=== PATIENT | female | born 1970 | race Caucasian/White ===

== ENCOUNTER 2019-08-24 09:17 | Outpatient (CLI) | payer BC, SELFPAY ==
--- NOTE | ~2019-08-24 | MM_ITS ---
EXAMINATION: MM screening [facility] BI w shaye HISTORY: Screening mammogram TECHNIQUE: Craniocaudal and mediolateral oblique 3-D tomosynthesis images were obtained and synthetic 2-D images were generated. CAD analysis was submitted and interpreted. COMPARISON: Comparison to multiple prior studies sequentially, with oldest reviewed study dated 10/2014. BREAST PARENCHYMAL COMPOSITION: There are scattered areas of fibroglandular density. FINDINGS: There is no evidence of suspicious mass, calcification, or architectural distortion to sugg est malignancy in either breast. There has been no suspicious interval change. IMPRESSION: 1. No mammographic evidence of malignancy. 2. Recommend routine screening mammography in one year. BI-RADS Category 1: Negative Reviewed, dictated and finalized at location A. CIPAL CYBER ENGINEER
== END 2019-08-24 09:18 | disposition home or self-care (01) ==
LOC: ANHIMG 09:20
PROVIDERS: PCP Family Medicine; Visit Provider Obstetrics & Gynecology
DX: Z12.31 Encounter for screening mammogram for malignant neoplasm of breast (principal)
CPT/HCPCS: 77063; 77067

== ENCOUNTER 2020-09-02 13:41 | Outpatient (CLI) | payer BC, SELFPAY ==
--- NOTE | ~2020-09-02 | MM_ITS ---
EXAMINATION: MM screening mary BI w shaye HISTORY: Screening TECHNIQUE: Craniocaudal and mediolateral oblique 3-D tomosynthesis images were obtained and synthetic 2-D images were generated. CAD analysis was submitted and interpreted. COMPARISON: Comparison to multiple prior studies sequentially, with oldest reviewed study dated 10/2014. BREAST PARENCHYMAL COMPOSITION: There are scattered areas of fibroglandular density. FINDINGS: There is no evidence of suspicious mass, calcification, or architectural distortion to sugg est malignancy in either breast. There has been no suspicious interval change. IMPRESSION: 1. No mammographic evidence of malignancy. 2. Recommend routine screening mammography in one year. BI-RADS Category 1: Negative Reviewed, dictated and finalized at location A. NG FELLER
== END 2020-09-02 13:42 | disposition home or self-care (01) ==
LOC: ANHIMG 13:44
PROVIDERS: PCP Family Medicine; Visit Provider Obstetrics & Gynecology
DX: Z12.31 Encounter for screening mammogram for malignant neoplasm of breast (principal)
CPT/HCPCS: 77063; 77067

== ENCOUNTER 2021-11-03 08:05 | Outpatient (CLI) | payer BC, SELFPAY ==
--- NOTE | ~2021-11-03 | MM_ITS ---
EXAMINATION: MM screening mary BI w shaye HISTORY: Screening mammogram TECHNIQUE: Craniocaudal and mediolateral oblique 3-D tomosynthesis images were obtained and synthetic 2-D images were generated. CAD analysis was submitted and interpreted. COMPARISON: September 02, 2020, August 24, 2019, August 16, 2018 bilateral screening mammogram examina tions BREAST PARENCHYMAL COMPOSITION: There are scattered areas of fibroglandular density. FINDINGS: There is no evidence of suspicious mass, calcification, or architectural distortion to sugg est malignancy in either breast. There has been no suspicious interval change. IMPRESSION: 1. No mammographic evidence of malignancy. 2. Recommend routine screening mammography in one year. BI-RADS Category 1: Negative Reviewed, dictated and finalized at location A.
== END 2021-11-03 08:06 | disposition home or self-care (01) ==
LOC: ANHIMG 08:07
PROVIDERS: PCP Family Medicine; Visit Provider Obstetrics & Gynecology
DX: Z12.31 Encounter for screening mammogram for malignant neoplasm of breast (principal)
CPT/HCPCS: 77063; 77067

== ENCOUNTER 2023-01-02 07:41 | Outpatient (CLI) | payer BC, SELFPAY ==
--- NOTE | ~2023-01-02 | MM_ITS ---
EXAMINATION: MM screening [facility] BI w shaye HISTORY: Screening mammogram TECHNIQUE: Craniocaudal and mediolateral oblique 3-D tomosynthesis images were obtained and synthetic 2-D images were generated. CAD analysis was submitted and interpreted. COMPARISON: 11/03/2021, 09/02/2020, 08/24/2019 BREAST PARENCHYMAL COMPOSITION: There are scattered areas of fibroglandular density. FINDINGS: No suspicious mass, calcification, or architectural distortion are identified in either lindsey ast to suggest malignancy. There has been no suspicious interval change. IMPRESSION: 1. No mammographic evidence of malignancy. 2. Recommend routine screening mammography in one year. BI-RADS Category 1: Negative Reviewed, dictated and finalized at location A.
== END 2023-01-02 07:42 | disposition home or self-care (01) ==
LOC: ANHIMG 07:44
PROVIDERS: PCP Family Medicine; Visit Provider Obstetrics & Gynecology
DX: Z12.31 Encounter for screening mammogram for malignant neoplasm of breast (principal)
CPT/HCPCS: 77063; 77067

== ENCOUNTER → 2023-01-14 09:04 | Outpatient (CLI) | payer BC, SELFPAY ==
--- NOTE | ~2023-01-14 | XR_ITS ---
XR shoulder RT min 2V DATE: 01/14/2023 10:05 INDICATION: Right shoulder pain TECHNIQUE: 4 views COMPARISON: None FINDINGS: Prominent uncovertebral joint spurring is noted on the right at C4-5 and C5-6. There is prominent degenerative spurring at the right acromioclavicular joint. No fracture or dislocation, periosteal reaction or bone destruction or abnormal soft tissue calcifica tion of the right shoulder is detected. IMPRESSION: Prominent right uncovertebral joint spurring at C4-5 and C5-6 Degenerative spurring of the right acromioclavicular joint Reviewed, dictated and finalized at location A.
== END ==
PROVIDERS: PCP Family Medicine; Visit Provider Family Medicine
DX: M25.511 Pain in right shoulder (principal)
CPT/HCPCS: 73030

== ENCOUNTER → 2023-04-22 10:28 | Outpatient (CLI) | payer BC, SELFPAY ==
--- NOTE | ~2023-04-22 | XR_ITS ---
XR cervical spine 4-5V 04/22/2023 10:47 Indication: Neck pain radiating to the right arm Procedure: 5 views cervical spine Comparison: No prior studies for comparison. Findings: There is straightening of cervical lordosis. There is disc narrowing and endplate hypertrop hy at C5-6 and C6-7. There is mild multilevel uncinate and facet hypertrophy. Lung apices are normal. Odontoid process is normal. Lateral masses normally aligned. Impression: 1: Mild cervical spondylosis. Reviewed, dictated and finalized at location A. Impression: 1: Mild cervical spondylosis.
== END ==
PROVIDERS: PCP Family Medicine; Visit Provider Family Medicine
DX: M43.02 Spondylolysis, cervical region (principal)
CPT/HCPCS: 72050

== ENCOUNTER 2023-05-22 09:09 | Outpatient (CLI) | payer BC, SELFPAY ==
--- NOTE | 2023-05-22 11:00 | NEURO_ITS ---
Impression: # Complains of right hand and finger numbness. # No Carpal Tunnel Syndrome or ulnar neuropathy. # Normal needle/EMG exam. # Clinical correlation recommended. Nerve Conduction Studies Anti Sensory Summary Table Stim Site NR Peak (ms) P-T Amp (?V) Site1 Site2 Delta-P (ms) Dist (cm) Cameron (m/s) Left Median Anti Sensory (2-3nd Digit) Wrist 2.4 99.1 Wrist 2-3nd Digit 2.4 14.0 58 Wrist 2.4 120.7 Wrist 2-3nd Digit 2.4 14.0 58 Right Median Anti Sensory (2-3nd Digit) Wrist 2.8 93.1 Wrist 2-3nd Digit 2.8 14.0 50 Wrist 3.0 75.8 Wrist 2-3nd Digit 2.8 14.0 50 Left Radial Anti Sensory (Base 1st Digit) Wrist 1.9 33.3 Wrist Base 1st Digit 1.9 0.0 Right Radial Anti Sensory (Base 1st Digit) Wrist 2.2 31.6 Wrist Base 1st Digit 2.2 0.0 Left Ulnar Anti Sensory (5th Digit) Wrist 2.3 68.6 Wrist 5th Digit 2.3 14.0 61 Right Ulnar Anti Sensory (5th Digit) Wrist 2.1 98.3 Wrist 5th Digit 2.1 14.0 67 Motor Summary Table Stim Site NR Onset (ms) O-P Amp (mV) Site1 Site2 Delta-0 (ms) Dist (cm) Cameron (m/s) Left Median Motor (Abd Poll Brev) Wrist 2.7 1.9 Elbow Wrist 5.0 29.0 58 Elbow 7.7 1.5 Right Median Motor (Abd Poll Brev) Wrist 3.3 4.1 Elbow Wrist 4.9 28.0 57 Elbow 8.2 2.2 Left Ulnar Motor (Abd Dig Minimi) Wrist 2.4 4.6 A Elbow Wrist 5.2 29.0 56 A Elbow 7.6 2.1 Right Ulnar Motor (Abd Dig Minimi) Wrist 2.0 4.6 A Elbow Wrist 5.2 29.0 56 A Elbow 7.2 4.0 F Wave Studies NR F-Lat (ms) L-R F-Lat (ms) Left Median (Mrkrs) (Abd Poll Brev) 28.60 0.00 Right Median (Mrkrs) (Abd Poll Brev) 28.60 0.00 Left Ulnar (Mrkrs) (Abd Dig Min) 27.70 0.81 Right Ulnar (Mrkrs) (Abd Dig Min) 26.89 0.81 EMG Side Muscle Nerve Root Ins Act Fibs Amp Dur Recrt Comment Right 1stDorInt Ulnar C8-T1 Nml Nml Nml Nml Nml Right Ext Indicis Radial (Post Int) C7-8 Nml Nml Nml Nml Nml Right Ext Digitorum Radial (Post Int) C7-8 Nml Nml Nml Nml Nml Right BrachioRad Radial C5-6 Nml Nml Nml Nml Nml Right PronatorTeres Median C6-7 Nml Nml Nml Nml Nml Right Abd Poll Brev Median C8-T1 Nml Nml Nml Nml Nml Left 1stDorInt Ulnar C8-T1 Nml Nml Nml Nml Nml Left Ext Indicis Radial (Post Int) C7-8 Nml Nml Nml Nml Nml Left Ext Digitorum Radial (Post Int) C7-8 Nml Nml Nml Nml Nml Left BrachioRad Radial C5-6 Nml Nml Nml Nml Nml Left PronatorTeres Median C6-7 Nml Nml Nml Nml Nml Left Abd Poll Brev Median C8-T1 Nml Nml Nml Nml Nml Right ABD Dig Min Ulnar C8-T1 Nml Nml Nml Nml Nml Right Biceps Musculocut C5-6 Nml Nml Nml Nml Nml Right Triceps Radial C6-7-8 Nml Nml Nml Nml Nml Left ABD Dig Min Ulnar C8-T1 Nml Nml Nml Nml Nml Left Biceps Musculocut C5-6 Nml Nml Nml Nml Nml Left Triceps Radial C6-7-8 Nml Nml Nml Nml Nml MTDD
== END 2023-05-22 09:10 | disposition home or self-care (01) ==
LOC: ANHNEURO 09:11
PROVIDERS: PCP Family Medicine; Visit Provider Family Medicine
DX: R20.0 Anesthesia of skin (principal)
CPT/HCPCS: 95886; 95911

== ENCOUNTER 2023-06-08 15:32 | Outpatient (CLI) | payer BC, SELFPAY ==
--- NOTE | ~2023-06-08 | MR_ITS ---
EXAMINATION: MR cervical spine wo con DATE: 06/08/2023 16:12 INDICATION: Cervical radiculopathy. TECHNIQUE: Magnetic resonance imaging (MRI) of the cervical spine was performed without intravenous c ontrast. COMPARISON: Cervical spine radiographs 04/22/2023 FINDINGS: There is 3 degrees levocurvature of cervical spine. There is hypolordosis of cervical spine . Vertebral body heights are normal. There is mildly decreased disc height at C4-C5 and moderately de creased disc height at C5-C6. The spinal cord signal intensity is normal. The following disc levels a re specifically discussed: C2-C3: The disc does not extend beyond the endplate margin. There is no uncovertebral joint osteoarth ritis. There is moderate right and severe left facet joint osteoarthritis. There is no neural foramin al stenosis. There is no central canal stenosis. C3-C4: There is a central protrusion. There is moderate right and mild left uncovertebral joint osteo arthritis. There is moderate right and mild left facet joint osteoarthritis. There is moderate right and mild left neural foraminal stenosis. There is mild central canal stenosis. C4-C5: There is a central extrusion. There is severe right and moderate left uncovertebral joint oste oarthritis. There is severe right and moderate left facet joint osteoarthritis. There is moderate rig ht and mild left neural foraminal stenosis. There is mild central canal stenosis with ventral indenta tion of the spinal cord. C5-C6: The disc is bulging. There is severe bilateral uncovertebral joint osteoarthritis. There is mi ld bilateral facet joint osteoarthritis. There is moderate right and mild left neural foraminal steno sis. There is mild central canal stenosis with ventral indentation of the spinal cord. C6-C7: The disc is bulging. There is moderate right and mild left uncovertebral joint osteoarthritis. There is severe bilateral facet joint osteoarthritis. There is moderate left neural foraminal stenos is. There is no central canal stenosis. C7-T1: The disc does not extend beyond the endplate margin. There is no uncovertebral joint osteoarth ritis. There is severe bilateral facet joint osteoarthritis. There is mild bilateral neural foraminal stenosis. There is no central canal stenosis. IMPRESSION: 1. Moderate cervical spondylosis. Reviewed, dictated and finalized at location E. PING CLERK
== END 2023-06-08 15:33 | disposition home or self-care (01) ==
LOC: ANHIMG 15:34
PROVIDERS: PCP Family Medicine; Visit Provider Family Medicine
DX: M47.22 Other spondylosis with radiculopathy, cervical region (principal)
CPT/HCPCS: 72141

== ENCOUNTER 2023-06-21 10:44 | Outpatient (CLI) | payer BC, SELFPAY ==
--- NOTE | ~2023-06-21 | XR_ITS ---
EXAMINATION:XR cervical spine 4-5V DATE: 06/21/2023 11:07 INDICATION: Neck pain TECHNIQUE: AP, lateral in neutral, flexion, and extension, and odontoid views of the cervical spine a re provided. COMPARISON: 04/22/2023 FINDINGS: Alignment is normal. No hypermobility is present with flexion or extension. The odontoid pr ocess is intact. No fracture is identified. There is moderate loss of intervertebral disc space heigh t at C5-C6 and mild loss of disc space height at C4-5 and C6-7. The vertebral body heights are mainta ined. Prevertebral soft tissues are normal. Small degenerative osteophytes project from the anterior endplates of multiple vertebral bodies. There is multilevel moderate facet and uncovertebral joint os teoarthritis. IMPRESSION: 1. Moderate cervical spondylosis without acute findings. Reviewed, dictated and finalized at location B. ER CONTROL TECHNICIAN
== END 2023-06-21 10:45 | disposition home or self-care (01) ==
LOC: ANHIMG 10:51
PROVIDERS: PCP Family Medicine; Visit Provider Neurological Surgery
DX: M43.02 Spondylolysis, cervical region (principal)
CPT/HCPCS: 72050

== ENCOUNTER 2023-10-03 15:21 | Outpatient (CLI) | payer BC, SELFPAY ==
--- NOTE | 2023-10-03 15:35 | ECG_ITS ---
Measurements Intervals [place] Rate: 72 P: 65 MO: 168 QRS: 63 QRSD: 90 T: 69 QT: 390 QTc: 427 Interpretive Statements SINUS RHYTHM NONSPECIFIC T-WAVE ABNORMALITY NO PREVIOUS ECG AVAILABLE FOR COMPARISON Electronically Signed On 10-04-2023 12:18:21 CDT by Carli Marroquin M.D.
[2023-10-03 16:01] LABS: Hemoglobin 13.8 g/dL (12.0-15.0); Mean Corpuscular HGB Conc 32.9 g/dl (32-36); Mean Corpuscular Hemoglobin 29.7 pg (26-34); Mean Corpuscular Volume 90.5 fl (80-100); Mean Platelet Volume 10.5 fl (7.4-10.4); Platelet Count Result 282 k/mm3 (150-375); Red Blood Count 4.64 M/mm3 (4.2-5.4); Red Cell Distribution Width 12.8 % (11.5-14.5); White Blood Count 6.7 K/mm3 (4.5-10.0)
[2023-10-03 16:10] LABS: Appearance Urine Clear (Clear); Bacteria Urine 2+ /hpf; Bilirubin Urine Negative (Negative); Blood Urine Negative (Negative); Color Urine Yellow (Yellow); Glucose Urine UA Negative (Negative); Ketones Urine Negative (Negative); Leukocyte Esterase Ur Trace LEU/UL (Negative); Nitrate Urine Negative (Negative); Non Pathogenic Casts 0-2; Protein Urine Negative (Negative); RBC Urine 0-2 /hpf (0-2); Specific Grav Ur 1.011 (1.001-1.035); Squamous Epithelial Cell Urine Occasional /hpf (Few); Urobilinogen Urine 0.2 mg/dL (<2.0); pH Urine 7.5 (5.0-9.0)
[2023-10-03 16:12] LABS: Anion Gap 4 mmol/L (4-12); Blood Urea Nitrogen 14 mg/dL (7-17); Calcium 9.2 mg/dL (8.4-10.2); Carbon Dioxide 33 mmol/L (22-30); Chloride 101 mmol/L (98-107); Estimated Glomerular Filt Rate > 60; Glucose 131 mg/dL (65-110); Potassium 3.9 mmol/L (3.4-5.0); Sodium 138 mmol/L (137-145)
[2023-10-03 16:13] LABS: INR 0.9; Partial Thromboplastin Time 33.6 Seconds (22.3-36.8); Prothrombin Time 12.8 Seconds (11.1-14.7)
[2023-10-03 16:17] LABS: Add Urine Microscopic? YES
== END 2023-10-03 15:22 | disposition home or self-care (01) ==
LOC: ANHSURGERY 15:24
PROVIDERS: PCP Family Medicine; Visit Provider Neurological Surgery
DX: Z01.818 Encounter for other preprocedural examination (principal); I10 Essential (primary) hypertension; M50.10 Cervical disc disorder with radiculopathy, unspecified cervical region; R93.1 Abnormal findings on diagnostic imaging of heart and coronary circulation
CPT/HCPCS: 36415; 80048; 81001; 85027; 85610; 85730; 86850; 86900; 86901; 87086; 87088; 93005

== ENCOUNTER 2023-10-11 00:53 | Day surgery (SDC) | payer BC, SELFPAY ==
[2023-09-28 11:27] VITALS: BMI 40.7
--- NOTE | 2023-09-28 11:34 | PC.NURSE ---
Report to the Outpatient Waiting Room, entrance under the green pavilion located off [facility], at time 6:00 on date 10/11/23. Planned Procedure Time: 7:30. Time changes happen often and if your time is changed the preop area will call you the afternoon before. - You and your visitor will be asked to self-screen and do not enter if you have any COVID symptoms. - A mask is optional within the hospital at this time. Patients may have clear liquids (water, carbonated beverages, clear teas, apple juice) until 3 hours prior to surgery (4:30) with a maximum of 20 ounces. - No food from midnight until time of surgery Take the following medications with a SIP of water the morning of surgery: LEXAPRO, METOPROLOL DO NOT STOP ANY OF YOUR OTHER PRESCRIPTION MEDICATIONS PRIOR TO SURGERY ?EXCEPT THE FOLLOWING Medications to discontinue per physician: VITAMINS/SUPPLEMENTS Date to take last dose: 10/07/23 Please no make-up, nail tristanian, hairspray, perfume, deodorant, or body powder the day of surgery. No jewelry (including any body piercings) or valuables the day of surgery, leave them at home. Please take a shower or bath the night before, or the morning of, surgery with an antibacterial soap. Wear comfortable, loose fitting clothing. - Jewelry must be removed prior to entering the operating room. Rings and piercings that are not removed may be cut off. - The hospital will not accept responsibility for valuables. - Please leave all valuables, including medications, at home the day of surgery. If you are going home after surgery, a licensed [employer] company driver must drive you home. - NO public transportation without another adult if you receive anesthesia. - We recommend that an adult stay with you for 24 hours following discharge. - We also recommend that you do not drive, make important decision, drink alcoholic beverages, or take any drugs that were not prescribed by your health care provider for at least 24 hours after your discharge time. Follow any additional instructions given to you from your surgeon. If you or anyone in your household have experienced Covid symptoms in the past week, please notify your surgeon or the nurse liaison at the phone number below for possible testing. Telephone instructions given to PT - MAIA and asked if any additional questions and then verbalized understanding. Patient advised to call surgeon office or pre surgery nurse liaison [phone] if any additional questions.
[2023-10-11] VITALS (13 sets, daily range): BP systolic 126–166; BP diastolic 57–83; PULSE 76–103; RESP 10–20; TEMP 36.2–36.8; O2SAT 94–99
--- NOTE | ~2023-10-11 | XR_ITS ---
EXAMINATION: XR fluoroscopy no charge DATE: 10/11/2023 09:58 INDICATION: Anterior cervical discectomy. TECHNIQUE: 4 intraoperative fluoroscopic views of the cervical spine were obtained. I was not present . Fluoroscopy exposure time was 8 seconds. COMPARISON: Cervical spine radiographs 06/21/2023 FINDINGS: There are changes of anterior fusion procedure from C4 to C6 with interbody devices and ant erior plate and screws. IMPRESSION: 1. Anterior fusion procedure from C4 to C6. Reviewed, dictated and finalized at location A.
[2023-10-11] MEDS: LACTATED RINGERS 1,000 ML 30 ML IV CONT ×2 (06:40→10:29)
--- NOTE | 2023-10-11 07:13 | WPDANESEPPF ---
Anes - Initial Pre Proc Eval Procedure: Operation Date: 10/11/23 07:30 Proposed Procedures p Anterior Cervical Discectomy Fusion C4-5 C5-6 - Nadya Velasquez MD Date/Time: 10/11/23 07:13 Surgeon: Nadya Velasquez MD Pre Op Diagnosis: Cerv Radiculopathy Patient Data Age: 53 Gender: F Height: 1.65 m Weight: 111.15 kg Allergies Allergy/AdvReac Type Severity Reaction Status Date / Time erythromycin base Allergy Unknown Hives Verified 10/11/23 06:14 Home Medications Medication Instructions Recorded Confirmed Type cholecalciferol (vitamin D3) 125 125 mcg PO DAILY 07/06/22 10/11/23 History mcg (5,000 unit) capsule multivitamin 1 tablet PO DAILY 10/21/22 10/11/23 History atorvastatin 20 mg tablet 20 mg PO DAILY #30 tabs 07/05/23 10/11/23 Rx escitalopram oxalate 20 mg tablet 20 mg PO DAILY #90 tabs 08/17/23 10/11/23 Rx lisinopril 20 1 tablet PO DAILY #90 tabs 08/17/23 10/11/23 Rx mg-hydrochlorothiazide 12.5 mg tablet metoprolol succinate 25 mg 25 mg PO DAILY #90 tabs 08/17/23 10/11/23 Rx tablet,extended release 24 hr Patient hx anesthesia problems: none Family hx anesthesia problems: none Results Review: All pre-operative results and documents have been reviewed as part of the pre-operative evaluation. [facility] Past Medical History Medical History Arthritis Congenital hip dislocation Generalized anxiety disorder Hyperlipidemia Hypertension Migraine Surgical History Surgical History History of bilateral tubal ligation History of cholecystectomy 01/1997 History of endometrial ablation 2008 History of hip surgery 1985 History of left hip replacement 04/2007 History of tonsillectomy 1996 Family History Family History (Updated 08/31/23 @ 09:09 by Gay Church CMA) Grandparent Carcinoma of colon Family history of malignant neoplasm of cervix Family history of malignant neoplasm of uterus Sibling Family history of malignant neoplasm of cervix Mother Family history of lung cancer Father Hypertension Cerebrovascular accident Other Family history of malignant neoplasm of breast Social History Social History (Updated 08/31/23 @ 09:10 by Gay Church CMA) Smoking packs per day: 1.5 Smoking cigarettes per day: 30.0 Years smoked: 15 Smoking pack-years: 22.50 Smoking status: Former smoker Tobacco type: cigarettes Second hand tobacco smoke exposure: No Smoking end date: 07/03/97 Alcohol intake: current Alcohol use details: VERY RARE Substance use: never Substance use type: does not use Do You Feel Safe in your Home?: Yes Lack of Transportation: No Lack of Food: Never True Current Housing: I Have Housing Concerned About Future Housing: No Difficulty Paying Gas/Electric Bills: No Difficulty Paying for Meds: No Currently Unemployed: No Education: Trade/Vocational Certificate Difficulty w/ Childcare or Family Care: No Living arrangements: with family Occupation/Education: occupation Gender identity (if verbalized by the patient): Female Sexual Orientation (if Verbalized by the Patient): Straight or Heterosexual Spiritual care concerns: No Anes - Eval Final PreProcedure Day of Procedure 10/11/23 07:13 Patient weight: morbidly obese Heart: regular rate and rhythm Lungs: clear to auscultation Airway: Mallampati scale class III Neurological: alert and oriented Last oral intake: >/= 8 hours ASA classification: III Emergent: no Anesthetic plan: proceed Anesthesia type and monitoring: general ETT and standard monitoring Results Review: All pre-operative results and documents have been reviewed as part of the pre-operative evaluation. Informed Consent: The patient's anesthetic plan and its attendant risks and benefits were discussed with the patient/family/POA. Questions wer
--- NOTE | 2023-10-11 07:18 | PM.IMHP ---
H&P: HPI History of Present Illness Date/Time: 10/11/23 07:18 Chief Complaint: Neck, right arm pain Narrative: From 06/21: Ms. Landon is a ? 53-year-old female with history of hypertension and palpitations who presents for evaluation of neck and arm pain.? She reports a 20+ year history symptoms which originally started as a sense of heaviness and weakness of her arms.? She had episodes of this intermittently for a number of years but never sought medical treatment.? She has not had any of these episodes within the last 3 years. Within the last 5 years,? She started to develop pain into the right shoulder which she thought was originating from her shoulder.? She saw a chiropractor and her medical doctor for this, but shoulder x-rays returned normal.? She had an MRI of her neck and was referred here. ? She currently reports intermittent pain in the neck that radiates into the right shoulder, shoulder blade, and down the arm into the thumb and index finger.? She occasionally will get pain into all fingers of her hand.? This pain generally occurs any time that she turns her neck.? She has symptoms in a similar distribution on the left side which are less significant.? As she has paresthesias in her arms and occasionally has difficulty gripping objects with her right hand.? She denies any issues with tripping, falling, balance, or bowel or bladder changes.? She currently takes Tylenol arthritis for pain which is somewhat helpful.? She has not had any other conservative treatments.? She currently works from home and is a nonsmoker. From : She completed physical therapy from which she found some very temporary improvement with traction.? She also epidural steroid injections and had some improvement in her hand symptoms after the transforaminal injection, but this has recently started wearing off.? She continues to have pain into the right shoulder, clavicle, shoulder blade, and down the arm following a C6 distribution.? She denies any left-sided symptoms.? She denies any other new symptoms since her last visit. Review of Systems Review of Systems: All systems reviewed & are unremarkable except as noted in HPI and below PMFSH Past Medical History Medical History (Reviewed 08/31/23 @ 09:07 by Gay Church [facility]) Arthritis Congenital hip dislocation Generalized anxiety disorder Hyperlipidemia Hypertension Migraine Surgical History Surgical History (Reviewed 08/31/23 @ 09:07 by Gay Church [facility]) History of bilateral tubal ligation History of cholecystectomy 01/1997 History of endometrial ablation 2008 History of hip surgery 1986 History of left hip replacement 04/2007 History of tonsillectomy 1996 Family History Family History (Updated 08/31/23 @ 09:09 by Gay Church [facility]) Grandparent Carcinoma of colon Family history of malignant neoplasm of cervix Family history of malignant neoplasm of uterus Sibling Family history of malignant neoplasm of cervix Mother Family history of lung cancer Father Hypertension Cerebrovascular accident Other Family history of malignant neoplasm of breast Social History Social History (Updated 08/31/23 @ 09:10 by Gay Church [facility]) Smoking packs per day: 1.5 Smoking cigarettes per day: 30.0 Years smoked: 15 Smoking pack-years: 22.50 Smoking status: Former smoker Tobacco type: cigarettes Second hand tobacco smoke exposure: No Smoking end date: 07/03/97 Alcohol intake: current Alcohol use details: VERY RARE Substance use: never Substance use type: does not use Do You Feel Safe in your Home?: Yes Lack of Transportation: No Lack of Food: Never True Current Housing: I Have Housing Concerned About Future Housing: No Difficulty Paying Gas/Electric Bills: No Difficulty Paying for Meds: No Currently Unemployed: No Education: Trade/Vocational Certificate Difficulty w/ Childcare or Family Care: No Living arrangements: w
--- NOTE | 2023-10-11 07:20 | WPDHPUPDATE1 ---
History and Physical Update Update Date/Time: 10/11/23 07:20 History and Physical has been reviewed, including an updated exam of the patient. There are NO changes in the patient's condition. Risks, benefits, and alternatives have been discussed and questions answered. Patient agrees to proceed with procedure.
[2023-10-11] MEDS: ceFAZolin 2 GM/D5W 50 ML 2 GM/50 ML BAG IVPB ×3 (07:32→23:42)
[2023-10-11] MEDS: BUPIVACAINE/EPINEPHRINE 0.5% 50 ML VIAL 20 ML INFILTRATE (08:22)
--- NOTE | 2023-10-11 10:16 | PM.OP ---
Procedure Note - Brief Procedure Note - Brief Date of procedure: 10/11/23 Cerv Radiculopathy Post-op diagnosis: Same Procedure performed: ACDF C4-5, C5-6 Surgeon: Nadya Velasquez MD Anesthesia: GETA Findings: Successful ACDF C4-6 without complication Estimated blood loss (mL): 25 Drains: No Packing: No Pathology: None sent Complications: None Condition: Stable Disposition: PACU
--- NOTE | 2023-10-11 10:35 | W.PM.PROC2 ---
Procedure Note - Detailed Date of Procedure 10/11/23 Pre-op Diagnosis Cerv Radiculopathy Post-op Diagnosis Same Procedure Performed 1. Anterior cervical diskectomy C4-5, C5-6 2. Anterior cervical arthrodesis C4-5, C5-6 with i-Factor 3. Anterior cervical interbody placement at C4-5, C5-6 4. Use of microscope for microsurgical dissection 5. Use of C-arm for fluoroscopy Surgeon Nadya Velasquez MD [employer] Conditioning Install[employer] Anesthesia General Findings Ms. Landon is a 53-year-old female who presents with neck and right arm pain radiating into the shoulder and first and second fingers which has been unresponsive to physical therapy and epidural steroid injections. MRI showed severe right neuroforaminal stenosis at C4-5 and C5-6. I recommended surgery in the form of ACDF C4-5 and C5-6. Risks including bleeding, pain, infection, weakness, paralysis, stroke, vocal cord damage, coma, and anesthetic risks were discussed. The patient provided written informed consent to proceed. Description of Procedure The patient was taken to the operating room and was transferred to the operating table in the supine position. General anesthesia was induced. Pressure points were appropriately padded, and compression devices were placed on the patient's calves. A shoulder roll was placed. The appropriate level was confirmed with the C-arm XR imaging. The patient was prepped and draped in usual sterile fashion. Perioperative antibiotics were given. Time out was performed. Local anesthesia was injected into the planned incision site. Incision was made with a 10-blade scalpel on the right side of the neck. The subcutaneous tissue was undermined above the platysma with the Metzenbaum scissors. The platysma was sharply opened horizontally. Bleeding was controlled with the bipolar. The avascular plane to the spine was dissected sharply. The anterior border of the spine was located and exposed with sharp and blunt dissection. A spinal needle was used to localize the C5-6 disc space; this was confirmed on fluoroscopy. The longus coli muscles were elevated bilaterally with a bovie. Once the C4, C5, and C6 vertebral bodies and adjacent intervertebral discs were adequately exposed, self-retaining retractors were placed. [place] pins were placed in the C4 and C5 vertebral bodies and were distracted. An 11-blade scalpel was used to incise the C4-5 disc. A combination of Kerrisons, currettes, and pituitary instruments were used to remove each disc. The microscope was draped and brought into the surgical field. The removal of disc and osteophytes were completed using a high-speed drill, multiple Kerrison punches, and currettes. The posterior longitudinal ligament was opened with a nerve hook and kerrison rongeurs until the neuroforamen bilaterally were adequately decompressed. Interbody trial instruments were used to determine the appropriate size for the prosthetic vertebral interbody cage. Hemostasis was achieved in the disc space with surgiflo and cottonoid patties. A 6mm interbody was filled with i-Factor and placed at C4-5. The caspar pin was removed from C4 and replaced in C6. Wax was placed in the caspar pin site. This process was repeated at the C5-6 disc. The disc was removed as described above, and the posterior longitudinal ligament was opened until the neuroforamen bilaterally were adequately decompressed. Interbody trial instruments were used to determine the appropriate size for the prosthetic vertebral interbody cage. Hemostasis was achieved in the disc space. A 5mm interbody was filled with i-Factor and placed at C5-6. The [place] pins were removed, and bone wax was used for hemostasis. Osteophytes over the vertebral bodies were removed with a [place] and high-speed drill. A 30mm plate was placed over the vertebral bodies and secured with 14mm screws. Accurate hardware placement was confirmed with fluoroscopy. The surgical cavity was copiously irrigated; appropriate hemostasis was verified; and t
--- NOTE | 2023-10-11 10:59 | SUR.PHASEI ---
1059: Simple mask removed.
--- NOTE | 2023-10-11 11:39 | SUR.PHASEI ---
1135: Patient meets PACU discharge criteria, unit bed unavailable at this time. Patient placed in extended recovery status.
--- NOTE | 2023-10-11 12:45 | PC.NURSE ---
This patient, Cait Landon, was admitted to [facility] Surg Room 315-01. Patient/family oriented to hospital policies and general routines including ID bracelet, bed and alarms, visiting hours, pain management, procedures, bathroom and other care routines, personal items, smoking policy, room service/diet, and visiting hours. Information on how to activate the Rapid Response Team has been discussed. Patient/Family are encouraged to report perceived risks to care and to ask questions if they do not understand what they are told or what they should do.
[2023-10-11] MEDS: oxyCODONE HCL (*CRX) 5 MG TAB IR PO (13:46)
[2023-10-11] MEDS: CYCLOBENZAPRINE HCL 10 MG TABLET PO ×2 (13:47→18:59)
[2023-10-11] MEDS: SODIUM CHLORIDE 0.9% IV 1,000 ML 100 ML IV CONT (13:47)
[2023-10-11] MEDS: ACETAMINOPHEN 500 MG TABLET 1000 MG PO (18:59)
[2023-10-11] MEDS: DOCUSATE SODIUM 100 MG CAPSULE PO (20:10)
[2023-10-11] MEDS: oxyCODONE HCL (*CRX) 5 MG TAB IR 10 MG PO (20:10)
[2023-10-12 01:30] VITALS: BP 121/60; PULSE 83; RESP 16; TEMP 36.6; O2SAT 95
[2023-10-12 05:30] VITALS: BP 149/65; PULSE 79; RESP 16; TEMP 36.5; O2SAT 97
[2023-10-12] MEDS: ACETAMINOPHEN 500 MG TABLET 1000 MG PO ×2 (06:13→12:20)
[2023-10-12 07:55] VITALS: BP 135/65; PULSE 72; RESP 18; TEMP 37.2; O2SAT 96
--- NOTE | 2023-10-12 07:57 | WPDANESPN ---
Anes - Prog Note Post-Op Date/Time: 10/12/23 07:57 Cardiovascular status: normal Respiratory status: normal Airway patency: baseline Mental status: baseline Post-Op hydration status: normal Vital Signs: Last Vital Signs Temp 36.5 C 10/12/23 05:30 Pulse 79 10/12/23 05:30 Resp 16 10/12/23 05:30 BP 149/65 H 10/12/23 05:30 Pulse Ox 97 10/12/23 05:30 O2 Del Method Room Air 10/11/23 20:00 O2 Flow Rate 2 10/11/23 12:30 Pain Score (VAS): 08/12 I/O: Intake & Output 10/11/23 10/11/23 10/12/23 15:59 23:59 07:59 Intake Total 550 1483.3 675 Balance 550 1483.3 675 Post-procedural complaints: none Patient Feedback: Patient satisfied with anesthetic care.
[2023-10-12 08:39] VITALS: PULSE 69
[2023-10-12] MEDS: METOPROLOL SUCCINATE EXT REL 25 MG TABCR PO (08:39)
[2023-10-12] MEDS: ATORVASTATIN 20 MG TABLET PO (08:40)
[2023-10-12] MEDS: hydroCHLOROthiazide 12.5 MG CAPSULE PO (08:40)
[2023-10-12] MEDS: lisinopriL 20 MG TABLET PO (08:40)
[2023-10-12] MEDS: ceFAZolin 2 GM/D5W 50 ML 2 GM/50 ML BAG IVPB ×2 (08:40→15:28)
[2023-10-12] MEDS: ESCITALOPRAM OXALATE 10 MG TABLET 20 MG PO (08:40)
[2023-10-12 13:30] VITALS: BP 135/67; PULSE 81; RESP 18; TEMP 36.6; O2SAT 100
[2023-10-12] MEDS: diphenhydrAMINE HCl CAP 25 MG CAPSULE PO (13:41)
--- NOTE | 2023-10-12 17:31 | WPDNEUROSGPN ---
Progress Note: A&P Assessment and Plan (1) Status post cervical arthrodesis: Code(s): Z98.1 - Arthrodesis status Status: Acute Plan -Discharge home this evening -Flushing may be delayed reaction to ioban vs IV steroids yesterday? -Wound care and restrictions discussed at bedside Subjective Date/time seen: 10/12/23 17:31 Interval history: Doing well with tolerable neck pain and minimal arm pain. Swallowing without difficulty. Ambulating in halls. She developed sudden flushing of the face and chest earlier this morning with mild itching under the chin. Did not receive antibiotics or other medication within a few hours of the onset of these symptoms. Feeling better this evening. Review of Systems Review of Systems: All systems reviewed & are unremarkable except as noted in HPI and below Exam Narrative: AOx4 Incision c/d/i Full strength in upper extremities Sensation intact Objective Data Vital Signs Vital Signs: Vital Signs - 24 hr 10/11/23 21:30 10/11/23 20:00 10/12/23 01:30 Temperature 98.3 F 98 F Pulse Rate 94 83 Respiratory Rate 16 16 Blood Pressure 134/57 L 121/60 Pulse Oximetry 94 95 Oxygen Delivery Room Air 10/12/23 05:30 10/12/23 08:39 10/12/23 08:00 Temperature 97.7 F Pulse Rate 79 69 Respiratory Rate 16 Blood Pressure 149/65 H Pulse Oximetry 97 Oxygen Delivery Room Air 10/12/23 07:55 10/12/23 13:30 Temperature 98.9 F 97.9 F Pulse Rate 72 81 Respiratory Rate 18 18 Blood Pressure 135/65 135/67 Pulse Oximetry 96 100 Oxygen Delivery Intake/Output Intake/Output: Intake & Output 10/09/23 10/10/23 10/11/23 10/12/23 23:59 23:59 23:59 23:59 Intake Total 3.3 2265 Balance 2033.3 2265 Meds/Results Medications: Active Medications Generic Name Dose Route Start Last Admin Trade Name Freq PRN Reason Stop Dose Admin Acetaminophen 1,000 mg 10/11/23 10:30 10/12/23 12:20 Acetaminophen 500 Mg Tablet PO 1,000 mg Q6H PRN Administration Mild Pain (1-3) Al Hydrox/Mg Hydrox/Simethicone 20 ml 10/11/23 10:30 Mag Hydrox/Al Hydrox/Simeth 30 Ml Udc PO Q4H PRN Indigestion/Heartburn Atorvastatin Calcium 20 mg 10/12/23 09:00 10/12/23 08:40 Atorvastatin 20 Mg Tablet PO 20 mg DAILY JOSIAS Administration Bisacodyl 10 mg 10/11/23 10:30 Bisacodyl 10 Mg Suppository RECTAL DAILY PRN Constipation Cyclobenzaprine HCl 10 mg 10/11/23 10:30 10/11/23 18:59 Cyclobenzaprine Hcl 10 Mg Tablet PO 10 mg TID PRN Administration Muscle Spasms Docusate Sodium 100 mg 10/11/23 21:00 10/12/23 08:47 Docusate Sodium 100 Mg Capsule PO Not Given Q12HR JOSIAS Escitalopram Oxalate 20 mg 10/12/23 09:00 10/12/23 08:40 Escitalopram Oxalate 10 Mg Tablet PO 20 mg DAILY JOSIAS Administration Hydrochlorothiazide 12.5 mg 10/12/23 09:00 10/12/23 08:40 Hydrochlorothiazide 12.5 Mg Capsule PO 12.5 mg QAM JOSIAS Administration Cefazolin Sodium 2 gm in 50 mls @ 100 mls/hr 10/11/23 16:00 10/12/23 15:28 Ancef 2 Gm/D5w 50 Ml IVPB 100 mls/hr Q8H JOSIAS Administration Sodium Chloride 1,000 mls @ 100 mls/hr 10/11/23 10:30 10/11/23 23:43 Normal Saline Iv IV CONT Not Given .Q10H JOSIAS Lisinopril 20 mg 10/12/23 09:00 10/12/23 08:40 Lisinopril 20 Mg Tablet PO 20 mg QAM JOSIAS Administration Metoprolol Succinate 25 mg 10/12/23 09:00 10/12/23 08:39 Metoprolol Succinate Ext Rel 25 Mg Tabcr PO 25 mg DAILY JOSIAS Administration Ondansetron HCl 4 mg 10/11/23 10:30 Ondansetron Inj 4 Mg/2 Ml Vial IV PUSH Q8H PRN Nausea And Vomiting Oxycodone HCl 10 mg 10/11/23 10:30 10/11/23 20:10 Oxycodone Hcl (*Crx) 5 Mg Tab Ir PO 10 mg Q6H PRN Administration Pain Rated 7-10 Oxycodone HCl 5 mg 10/11/23 10:30 10/11/23 13:46 Oxycodone Hcl (*Crx) 5 Mg Tab Ir PO 5 mg Q6H PRN Administration Pain Rated 4-6 Senna/Docusate Sodium 1 tab 10/11/23
== END 2023-10-12 18:00 | disposition home or self-care (01) ==
LOC: ANHSURGERY 05:54 → ANH3MEDSUR 12:22
PROVIDERS: PCP Family Medicine; Visit Provider Neurological Surgery
PROC: (CPT 63030; principal; 2023-10-11 07:30)
DX: M50.11 Cervical disc disorder with radiculopathy, high cervical region (principal); I10 Essential (primary) hypertension; E78.5 Hyperlipidemia, unspecified; F41.9 Anxiety disorder, unspecified; E66.01 Morbid (severe) obesity due to excess calories; Z68.41 Body mass index [BMI] 40.0-44.9, adult; Z98.890 Other specified postprocedural states; Z87.891 Personal history of nicotine dependence; Z90.49 Acquired absence of other specified parts of digestive tract; Z80.0 Family history of malignant neoplasm of digestive organs; Z80.49 Family history of malignant neoplasm of other genital organs; Z80.1 Family history of malignant neoplasm of trachea, bronchus and lung; Z80.3 Family history of malignant neoplasm of breast; Z82.49 Family history of ischemic heart disease and other diseases of the circulatory system
CPT/HCPCS: 22551; 22552; 22853 ×2; 99199; A9270; C1713; J0330; J0690; J1100; J1170; J1200; J2250; J2310; J2405; J2704; J3010; J7030; J7120

== ENCOUNTER 2024-01-11 16:09 | Outpatient (CLI) | payer BC, SELFPAY ==
--- NOTE | ~2024-01-11 | MM_ITS ---
EXAMINATION: MM screening mary BI w shaye HISTORY: Screening TECHNIQUE: Craniocaudal and mediolateral oblique 3-D tomosynthesis images were obtained and synthetic 2-D images were generated. CAD analysis was submitted and interpreted. COMPARISON: Comparison to multiple prior studies sequentially, with oldest reviewed study dated 01/2018. BREAST PARENCHYMAL COMPOSITION: Not dense: There are scattered areas of fibroglandular density. FINDINGS: There is no evidence of suspicious mass, calcification, or architectural distortion to sugg est malignancy in either breast. There has been no suspicious interval change. IMPRESSION: 1. No mammographic evidence of malignancy. 2. Recommend routine screening mammography in one year. BI-RADS Category 1: Negative Reviewed, dictated and finalized at location B.
== END 2024-01-11 16:10 | disposition home or self-care (01) ==
LOC: ANHIMG 16:10
PROVIDERS: PCP Family Medicine; Visit Provider Obstetrics & Gynecology
DX: Z12.31 Encounter for screening mammogram for malignant neoplasm of breast (principal)
CPT/HCPCS: 77063; 77067

== ENCOUNTER 2024-01-24 15:35 | Outpatient (CLI) | payer BC, SELFPAY ==
--- NOTE | ~2024-01-24 | XR_ITS ---
[id number]_CR Ordering provider: Nadya Velasquez MD History: . Z98.1 - Arthrodesis status, surg in October, follow up . Comparison: June 21, 2023 FINDINGS: VERTEBRAL BODIES: Normal height and alignment. No visible fracture or subluxation. The dens is intact . Postoperative changes seen anteriorly at the level of C4, C5 and C6. DISK SPACES: Well maintained. Disc spacers seen at the level of C4-C5 and C5-C6 Facet joint disease at the level of C6-C7 and C7-T1 PARASPINOUS SOFT TISSUES: No prevertebral soft tissue swelling. IMPRESSION: No acute osseous abnormality cervical spine. Postoperative changes. Reviewed, dictated and finalized at location A.
== END 2024-01-24 15:36 | disposition home or self-care (01) ==
LOC: ANHIMG 15:36
PROVIDERS: PCP Family Medicine; Visit Provider Neurological Surgery
DX: Z98.1 Arthrodesis status (principal); Z98.890 Other specified postprocedural states
CPT/HCPCS: 72040

== ENCOUNTER 2024-04-29 00:55 | Day surgery (SDC) | payer BC, SELFPAY ==
[2024-04-16 14:09] VITALS: BMI 40.7
--- NOTE | 2024-04-28 14:57 | WPDANESEPP ---
Anes - Eval Pre Procedure Procedure: Operation Date: 04/29/24 08:30 Proposed Procedures p Screening Colonoscopy - Tom Ng MD Date/Time: 04/28/24 14:57 Pre Op Diagnosis: Hx colon Polyps Patient Data Age: 54 Gender: F Height: 1.65 m Weight: 111 kg Allergies Allergy/AdvReac Type Severity Reaction Status Date / Time erythromycin base Allergy Unknown Hives Verified 04/25/24 09:41 Home Medications Medication Instructions Recorded Confirmed Type cholecalciferol (vitamin D3) 125 125 mcg PO DAILY 07/06/22 04/25/24 History mcg (5,000 unit) capsule multivitamin 1 tablet PO DAILY 10/21/22 04/25/24 History atorvastatin 20 mg tablet 20 mg PO DAILY #30 tabs 03/14/24 04/25/24 Rx escitalopram oxalate 20 mg tablet 20 mg PO DAILY #90 tabs 04/21/24 04/25/24 Rx (Lexapro) lisinopril 20 1 tablet PO DAILY #90 tabs 04/21/24 04/25/24 Rx mg-hydrochlorothiazide 12.5 mg tablet metoprolol succinate 25 mg 25 mg PO DAILY #90 tabs 04/21/24 04/25/24 Rx tablet,extended release 24 hr Patient hx anesthesia problems: none Family hx anesthesia problems: none Results Review: All pre-operative results and documents have been reviewed as part of the pre-operative evaluation. [facility] Past Medical History Medical History Abnormal glucose Arthritis Congenital hip dislocation Generalized anxiety disorder Herniation of cervical intervertebral disc with radiculopathy Hyperlipidemia Hypertension Migraine Surgical History Surgical History History of bilateral tubal ligation History of cholecystectomy 01/1997 History of endometrial ablation 2008 History of hip surgery 1985 History of left hip replacement 04/2007 History of tonsillectomy 1996 Status post cervical arthrodesis October 11, 2023 Family History Family History Grandparent Carcinoma of colon Family history of malignant neoplasm of cervix Family history of malignant neoplasm of uterus Sibling Family history of malignant neoplasm of cervix Mother Family history of lung cancer Father Hypertension Cerebrovascular accident Other Family history of malignant neoplasm of breast Social History Social History Smoking packs per day: 1.5 Smoking cigarettes per day: 30.0 Years smoked: 15 Smoking pack-years: 22.50 Smoking status: Former smoker Tobacco type: cigarettes Second hand tobacco smoke exposure: No Smoking end date: 07/03/98 Alcohol intake: current Alcohol use details: 1 x month Substance use: never Substance use type: does not use Do You Feel Safe in your Home?: Yes Lack of Transportation: No Lack of Food: Never True Current Housing: I Have Housing Concerned About Future Housing: No Difficulty Paying Gas/Electric Bills: No Difficulty Paying for Meds: No Currently Unemployed: No Education: Associate Degree Difficulty w/ Childcare or Family Care: No Living arrangements: with family Occupation/Education: occupation Gender identity (if verbalized by the patient): Female Sexual Orientation (if Verbalized by the Patient): Straight or Heterosexual Spiritual care concerns: No Exam Day of Procedure 04/28/24 14:57
[2024-04-29 07:26] VITALS: BP 146/86; PULSE 92; RESP 18; TEMP 35.9; O2SAT 98
[2024-04-29] MEDS: LACTATED RINGERS 1,000 ML 150 ML IV CONT (07:36)
--- NOTE | 2024-04-29 08:02 | P.PNAN_ITS ---
Anes - Initial Pre Proc Eval Procedure: Operation Date: 04/29/24 08:30 Proposed Procedures p Screening Colonoscopy - Tom Ng MD Date/Time: 04/29/24 08:02 Surgeon: Tom Ng MD Pre Op Diagnosis: Hx colon Polyps Patient Data Age: 54 Gender: F Height: 1.65 m Weight: 110.1 kg Last Vital Signs Temp 35.9 C L 04/29/24 07:26 Pulse 92 04/29/24 07:26 Resp 18 04/29/24 07:26 BP 146/86 H 04/29/24 07:26 Pulse Ox 98 04/29/24 07:26 O2 Del Method Room Air 04/29/24 07:26 Allergies Allergy/AdvReac Type Severity Reaction Status Date / Time erythromycin base Allergy Unknown Hives Verified 04/29/24 07:23 Home Medications Medication Instructions Recorded Confirmed Type cholecalciferol (vitamin D3) 125 125 mcg PO DAILY 07/06/22 04/29/24 History mcg (5,000 unit) capsule multivitamin 1 tablet PO DAILY 10/21/22 04/29/24 History atorvastatin 20 mg tablet 20 mg PO DAILY #30 tabs 03/14/24 04/29/24 Rx escitalopram oxalate 20 mg tablet 20 mg PO DAILY #90 tabs 04/21/24 04/29/24 Rx (Lexapro) lisinopril 20 1 tablet PO DAILY #90 tabs 04/21/24 04/29/24 Rx mg-hydrochlorothiazide 12.5 mg tablet metoprolol succinate 25 mg 25 mg PO DAILY #90 tabs 04/21/24 04/29/24 Rx tablet,extended release 24 hr Patient hx anesthesia problems: none Family hx anesthesia problems: none Results Review: All pre-operative results and documents have been reviewed as part of the pre- operative evaluation. [facility] Past Medical History Medical History Abnormal glucose Arthritis Congenital hip dislocation Generalized anxiety disorder Herniation of cervical intervertebral disc with radiculopathy Hyperlipidemia Hypertension Migraine Surgical History Surgical History History of bilateral tubal ligation History of cholecystectomy 01/1997 History of endometrial ablation 2008 History of hip surgery 1985 History of left hip replacement 04/2007 History of tonsillectomy 1996 Status post cervical arthrodesis October 11, 2023 Family History Family History Grandparent Carcinoma of colon Family history of malignant neoplasm of cervix Family history of malignant neoplasm of uterus Sibling Family history of malignant neoplasm of cervix Mother Family history of lung cancer Father Hypertension Cerebrovascular accident Other Family history of malignant neoplasm of breast Social History Social History Smoking packs per day: 1.5 Smoking cigarettes per day: 30.0 Years smoked: 15 Smoking pack-years: 22.50 Smoking status: Former smoker Tobacco type: cigarettes Second hand tobacco smoke exposure: No Smoking end date: 07/03/98 Alcohol intake: current Alcohol use details: 1 x month Substance use: never Substance use type: does not use Do You Feel Safe in your Home?: Yes Lack of Transportation: No Lack of Food: Never True Current Housing: I Have Housing Concerned About Future Housing: No Difficulty Paying Gas/Electric Bills: No Difficulty Paying for Meds: No Currently Unemployed: No Education: Associate Degree Difficulty w/ Childcare or Family Care: No Living arrangements: with family Occupation/Education: occupation Gender identity (if verbalized by the patient): Female Sexual Orientation (if Verbalized by the Patient): Straight or Heterosexual Spiritual care concerns: No Comments use propofol amidate mixture for sedation Anes - Eval Final PreProcedure Day of Procedure 04/29/24 08:02 Patient weight: morbidly obese Heart: regular rate and rhythm and murmur Lungs: clear to auscultation Airway: Mallampati scale class III Neurological: alert and oriented Last oral intake: >/= 8 hours ASA classification: III Emergent: no Anesthetic plan: proceed Anesthesia type and monitoring: general GIVS and standard monitoring Results Review: All pre-operative results and documents have been reviewed as part of the pre- operative evaluation. Informed Consent: The patient's anesthetic plan and its attendant risks and benefits were discussed with the patient/family/POA. Questions were solicited and answers provided to the satisfaction of the patient/family/POA.
--- NOTE | 2024-04-29 08:48 | PM.IMHP ---
H&P: HPI History of Present Illness Date/Time: 04/29/24 08:48 Chief Complaint: History of polyps Narrative: The patient has a history of colonic polyps, the last colonoscopy was 5 years ago. Review of Systems Review of Systems: All systems reviewed & are unremarkable except as noted in HPI and below PMFSH Past Medical History Medical History Abnormal glucose Arthritis Congenital hip dislocation Generalized anxiety disorder Herniation of cervical intervertebral disc with radiculopathy Hyperlipidemia Hypertension Migraine Surgical History Surgical History History of bilateral tubal ligation History of cholecystectomy 01/1997 History of endometrial ablation 2008 History of hip surgery 1985 History of left hip replacement 04/2007 History of tonsillectomy 1996 Status post cervical arthrodesis October 11, 2023 Family History Family History Grandparent Carcinoma of colon Family history of malignant neoplasm of cervix Family history of malignant neoplasm of uterus Sibling Family history of malignant neoplasm of cervix Mother Family history of lung cancer Father Hypertension Cerebrovascular accident Other Family history of malignant neoplasm of breast Social History Social History Smoking packs per day: 1.5 Smoking cigarettes per day: 30.0 Years smoked: 15 Smoking pack-years: 22.50 Smoking status: Former smoker Tobacco type: cigarettes Second hand tobacco smoke exposure: No Smoking end date: 07/03/98 Alcohol intake: current Alcohol use details: 1 x month Substance use: never Substance use type: does not use Do You Feel Safe in your Home?: Yes Lack of Transportation: No Lack of Food: Never True Current Housing: I Have Housing Concerned About Future Housing: No Difficulty Paying Gas/Electric Bills: No Difficulty Paying for Meds: No Currently Unemployed: No Education: Associate Degree Difficulty w/ Childcare or Family Care: No Living arrangements: with family Occupation/Education: occupation Gender identity (if verbalized by the patient): Female Sexual Orientation (if Verbalized by the Patient): Straight or Heterosexual Spiritual care concerns: No Meds Home Medications and Allergies Home Medications Medication Instructions Recorded Confirmed Type cholecalciferol (vitamin D3) 125 125 mcg PO DAILY 07/06/22 04/29/24 History mcg (5,000 unit) capsule multivitamin 1 tablet PO DAILY 10/21/22 04/29/24 History atorvastatin 20 mg tablet 20 mg PO DAILY #30 tabs 03/14/24 04/29/24 Rx escitalopram oxalate 20 mg tablet 20 mg PO DAILY #90 tabs 04/21/24 04/29/24 Rx (Lexapro) lisinopril 20 1 tablet PO DAILY #90 tabs 04/21/24 04/29/24 Rx mg-hydrochlorothiazide 12.5 mg tablet metoprolol succinate 25 mg 25 mg PO DAILY #90 tabs 04/21/24 04/29/24 Rx tablet,extended release 24 hr Allergies Allergy/AdvReac Type Severity Reaction Status Date / Time erythromycin base Allergy Unknown Hives Verified 04/29/24 07:23 Vital Signs Vital Signs - 24 hr 04/29/24 07:26 Temperature 96.7 F L Pulse Rate 92 Respiratory Rate 18 Blood Pressure 146/86 H Pulse Oximetry 98 Oxygen Delivery Room Air Assessment and Plan Assessment and plan (1) History of colonic polyps: Code(s): Z86.0100 - Personal history of colon polyps, unspecified Status: Acute Assessment and Plan: The patient is deemed a good candidate for the procedure. Consent signed. Will proceed.
[2024-04-29 09:08] VITALS: BP 110/51; PULSE 72; RESP 13; O2SAT 97
[2024-04-29 09:18] VITALS: BP 113/54; PULSE 64; RESP 15; O2SAT 97
[2024-04-29 09:28] VITALS: BP 118/65; PULSE 66; RESP 14; O2SAT 99
== END 2024-04-29 09:36 | disposition home or self-care (01) ==
PROVIDERS: PCP Family Medicine; Referring Provider Internal Medicine Gastroenterology; Visit Provider Internal Medicine Gastroenterology
PROC: 0DJD8ZZ Inspection of Lower Intestinal Tract, Via Natural or Artificial Opening Endoscopic (ICD-10-PCS; CPT 45378; principal; 2024-04-29 08:30)
DX: Z12.11 Encounter for screening for malignant neoplasm of colon (principal); E78.5 Hyperlipidemia, unspecified; I10 Essential (primary) hypertension; F41.9 Anxiety disorder, unspecified; M50.10 Cervical disc disorder with radiculopathy, unspecified cervical region; E66.01 Morbid (severe) obesity due to excess calories; Z68.41 Body mass index [BMI] 40.0-44.9, adult; Z98.890 Other specified postprocedural states; Z90.49 Acquired absence of other specified parts of digestive tract; Z98.51 Tubal ligation status; Z98.1 Arthrodesis status; Z87.891 Personal history of nicotine dependence; Z86.0100 Personal history of colon polyps, unspecified; Z80.3 Family history of malignant neoplasm of breast; Z80.0 Family history of malignant neoplasm of digestive organs; Z80.49 Family history of malignant neoplasm of other genital organs; Z80.1 Family history of malignant neoplasm of trachea, bronchus and lung; Z82.49 Family history of ischemic heart disease and other diseases of the circulatory system
CPT/HCPCS: 45378; J2003; J2704; J7120

== ENCOUNTER 2024-07-24 09:34 | Outpatient (CLI) | payer BC, SELFPAY ==
--- NOTE | ~2024-07-24 | XR_ITS ---
Cervical Spine: AP, lateral, open-mouth views Clinical History: Arthrodesis COMPARISON: 01/24/2024 Findings: The normal lordotic curve is maintained. No acute fracture or dislocation. Stable anterior and interbody fusion from C4 through C6. Stable degenerative disc changes C6-C7. Pre-vertebral soft t issues are unremarkable. Impression: Stable fusion from C4 through C6. Stable mild degenerative change otherwise, as above. Reviewed, dictated and finalized at location . YE GUNNER Impression: Stable fusion from C4 through C6. Stable mild degenerative change otherwise, as above.
--- OUTSIDE RECORDS SUMMARY | 2024-07-25 22:34 | XMS_ITS | Referral Summary ---
Author Organization [facility] [address] [address] [address] [place] [address] Care Team Providers Care Gelatin Powder Mixer Name Role Phone Spencer Manuel MD Primary Care Provider Allergies No known active allergies Medications metoprolol XL (TOPROL-XL) 25 mg extended release tablet Take 1 tablet (25 mg total) by mouth daily 07/28/2020 Active atorvastatin (LIPITOR) 20 mg tablet Take 1 tablet (20 mg total) by mouth daily 07/28/2020 Active lisinopril-hydr oCHLOROthiazide (ZESTORETIC) 20-12.5 mg per tablet Take 1 tablet by mouth daily 07/08/2020 Active escitalopram (LEXAPRO) 20 mg tablet Take 1 tablet (20 mg total) by mouth daily 08/19/2020 Active evening primrose oil 500 mg capsule Activ e cholecalciferol (VITAMIN D-3) 5,000 unit capsule Take 1 capsule (5,000 Units total) by mouth daily Active Active Problems Problem Noted Date Diagnosed Date Mild aortic stenosis by prior echocardiogram 09/2023 Dizziness 11/21/2022 Palpitations 08/20/2020 Hyperlipidemia Hypertension BMI 40.0-44.9, adult Social History Tobacco Use Types Packs/Day Years Used Date Smoking Tobacco: Former Cigarettes Q uit: 1997 Smokeless Tobacco: Never Tobacco Cessation:Counseling Given: Not Answered Alcohol Use Standard Drinks/Week Comments Not Currently 0 (1 standard drink = 0.6 oz pur e alcohol) Rarely have a drink Personal Safety Answer Date Recorded Getting School Help Needed Not on file 09/14 Comments Unknown Sex and Gender Information Value Date Recorded Sex Assigned at Not on file Legal Sex 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 Gender Identity Female 08/19/2020 7:33 PM MILLING MACHINIST Sexual Orientation Straight 08/19/2020 7: 33 PM MILLING MACHINIST Last Filed Vital Signs Vital Sign Reading Time Taken Comments Blood Pressure 112/74 12/04/2023 8:22 AM CDT Pulse 88 12/04/2023 8:22 AM CDT Temperature 36.2 ??C (97.1 ??F) 08/25/2020 1 0:12 AM MILLING MACHINIST Respiratory Rate - - Oxygen Saturation 97% 12/04/2023 8:22 AM CDT Inhaled Oxygen Concentration - - Weight 113.3 kg (249 lb 12.8 oz) 12/04/2023 8:22 AM CDT Height 162.6 cm (5' 4 ) 12/04/2023 8:22 AM CDT Body Mass Index 42.88 12/04/2023 8:22 AM CDT Plan of Treatment Not on file Insurance [employer] Care Teams Gelatin Powder Mixer Relationship Specialty Start Date End Date Spencer Manuel MD [address] [place] [address] PCP - General 06/07/11
--- OUTSIDE RECORDS SUMMARY | 2024-07-25 22:34 | XMS_ITS | Encounter Summary ---
Author Organization [facility] Address 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 Gender Identity Not on file Sexual Orientation Not on file documented as of this encounter Plan of Treatment Not on file documented as of this encounter Procedures Procedure Name Priority Date/Time Associated Diagnosis Comments HEMOGLOBIN AND HEMATOCRIT Routine 04/25/2007 5:00 AM CDT PROTIME-INR Routine 04/25/2007 5:00 AM CDT HEMOGLOBIN AND HEMATOCRIT Routine 04/24/2007 5:00 AM CDT PROTIME-INR Routine 04/24/2007 5:00 AM CDT HEMOGLOBIN AND HEMATOCRIT Routine 04/23/2007 5:21 PM CDT HEMOGLOBIN AND HEMATOCRIT Routine 04/23/2007 12:20 PM CDT POC , URINE Routine 04/23/2007 5:50 AM CDT HEMOGLOBIN AND HEMATOCRIT Routine 04/16/2007 4:23 PM CDT documented in this encounter Results * PROTIME-INR (04/25/2007 5:00 AM CDT) PROTIME 14.4 12.7 - 15.1 Seconds INTERFACE SYSTEM INR 1.1 0.9 - 1.1 INTERFACE SYSTEM Comment: INR Therapeutic Range: Adult: 2.0 - 3.0 for pulmonary embolism or prophylaxis against venous thrombosis or systemic embolization. 2.0 - 3.0 for patients with tissue heart valves. 2.5 - 3.5 for patients with mechanical heart valves or post DE. Pediatric ??(12 years and under): 1.5 - 3.0 Although the target range in children is not well established , INR values of 1.5 - 3.0 are recommended for most patients. Higher values have been used in children with prosthetic cardiac valves and hereditary clotting disorders. (<3 days) therapeutic ranges have not been established. 04/25/2007 5:00 AM CDT Deshawn Wood MD HEMATOLOGY ORDERABLES Edited Performing Organization Address City/[facility] Phone Number INTERFACE SYSTEM Refer to clinic/hospital department * (ABNORMAL) HEMOGLOBIN AND HEMATOCRIT (04/25/2007 5:00 AM CDT) HEMOGLOBIN 8.6(L) 13.6 - 16.5 g/dL INTERFACE SYSTEM HEMATOCRIT 26.3(L) 40.0 - 48.0 % INTERFACE SYSTEM 04/25/2007 5:00 AM CDT Deshawn Wood MD HEMATOLOGY ORDERABLES Edited Performing Organization Address City/[facility] [place] Phone Number INTERFACE SYSTEM Refer to clinic/hospital department * (ABNORMAL) PROTIME-INR (04/24/2007 5:00 AM CDT) PROTIME 15.5(H) 12.7 - 15.1 Seconds INTERFACE SYSTEM INR 1.2(H) 0.9 - 1.1 INTERFACE SYSTEM Comment: INR Therapeutic Range: Adult: 2.0 - 3.0 for pulmonary embolism or prophylaxis against venous thrombosis or systemic embolization. 2.0 - 3.0 for patients with tissue heart valves. 2.5 - 3.5 for patients with mechanical heart valves or post DE. Pediatric ??(12 years and under): 1.5 - 3.0 Although the target range in children is not well established , INR values of 1.5 - 3.0 are recommended for most patients. Higher values have been used in children with prosthetic cardiac valves and hereditary clotting disorders. (<3 days) therapeutic ranges have not been established. 04/24/2007 5:00 AM CDT us Deshawn Wood MD HEMATOLOGY ORDERABLES Edited Performing Organization Address [facility] Phone Number INTERFACE SYSTEM Refer to clinic/hospital department * (ABNORMAL) HEMOGLOBIN AND HEMATOCRIT (04/24/2007 5:00 AM CDT) HEMOGLOBIN 8.8(L) 13.6 - 16.5 g/dL INTERFACE SYSTEM HEMATOCRIT 26.6(L) 40.0 - 48.0 % INTERFACE SYSTEM 04/24/2007 5:00 AM CDT us Deshawn Wood MD HEMATOLOGY ORDERABLES Edited Performing Organization Address [facility] Phone Number INTERFACE SYSTEM Refer to clinic/hospital department * (ABNORMAL) HEMOGLOBIN AND HEMATOCRIT (04/23/2007 5:21 PM CDT) HEMOGLOBIN 10.2(L) 13.6 - 16.5 g/dL INTERFACE SYSTEM HEMATOCRIT 31.0(L) 40.0 - 48.0 % INTERFACE SYSTEM 04/23/2007 5:21 PM CDT us Deshawn Wood MD HEMATOLOGY ORDERABLES Edited Performing Organization Address [facility] Phone Number INTERFACE SYSTEM Refer to clinic/hospital department * (ABNORMAL) HEMOGLOBIN AND HEMATOCRIT (04/23/2007 12:20 PM CDT) HEMOGLOBIN 10.9(L) 13.6 - 16.5 g/dL INTERFACE SYSTEM HEMATOCRIT 32.2(L) 40.0 - 48.0 % INTERFACE SYSTEM 04/23/2007 12:2 0 PM CDT us Deshawn Wood MD HEMATOLOGY ORDERABLES Edited Performing Organization Address [facility] Phone Number INTERFACE SYSTEM Refer to clinic/hospital department * POC , URINE (04/23/2007 5:50 AM CDT) , URINE POC Negative Negative INTERFACE SYSTEM 04/23/2007 5:50 AM CDT Result Marla Wood MD POINT OF CARE TESTING Edited Performing Organization Address [facility] Phone Number INTERFACE SYSTEM Refer to clinic/hospital department * (ABNORMAL) HEMOGLOBIN AND HEMATOCRIT (04/16/2007 4:23 PM CDT) HEMOGLOBIN 12.3(L) 13.6 - 16.5 g/dL INTERFACE SYSTEM HEMATOCRIT 36.4(L) 40.0 - 48.0 % INTERFACE SYSTEM 04/16/2007 4:23 PM CDT Result Marla Wood MD HEMATOLOGY ORDERABLES Edited Performing Organization Address [facility] Phone [facility] INTERFACE SYSTEM Refer to clinic/hospital department documented in this encounter Visit Diagnoses Diagnosis Other mechanical complication of other internal orthopedic device, implant, and graft- Primary documented in this encounter
--- OUTSIDE RECORDS SUMMARY | 2024-07-25 22:34 | XMS_ITS | Clinical Summary ---
Author Organization [facility] Address [address] [place]: Epic Prelude ADT PATRIA GARZA [address] Care Team Providers Care Wire Mesh Gate Assembler Name Role Phone Unavailable Primary Care Provider Unavailabl e Medications cephALEXin (KEFLEX) 500 mg capsule TAKE 4 TABLETS 1 HOUR PRIOR TO DENTAL WORK. 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
--- OUTSIDE RECORDS SUMMARY | 2024-07-25 22:34 | XMS_ITS | Clinical Summary ---
Author Organization [facility] [address] [address] [address] [place] [address] Care Team Providers Care Cook Helper Name Role Phone Spencer Manuel MD Primary Care Provider [phone] Allergies No known active allergies Medications metoprolol [...] Palpitations 08/20/2020 Hyperlipidemia Hypertension BMI 40.0-44.9, adult Surgical History Surgery Date Site/Laterality Comments GA TONSILLECTOMY PRIMARY/SECONDARY <AGE 12 Tonsillectomy - (Added by TW Conv) GA LIG/TRNSXJ FLP TUBE ABDL/VAG APPR UNI/BI Tubal Ligation - (Added by TW Conv) GA LAPAROSCOPY SURG CHOLECYSTECTOMY Cholecystectomy Laparoscopic - (Added by TW Conv) JOINT REPLACEMENT 07/03/2006 - 07/02/2007 TUBAL LIGATION 07/03/2002 - 07/02/2003 PARTIAL HIP ARTHROPLASTY 07/03/2006 - 07/02/2007 Left CHOLECYSTECTOMY 07/03/1995 - 07/02/1996 Medical History Medical History Date Comments Anxiety disorder Anxiety - (Adde d by TW Conv) Personal history of other di seases of the musculoskeletal system and connective tissue History of arthritis - (Adde d by TW Conv) Depression Hypertension Hyperlipidemia Acid indigestion Arthritis Heart murmur Dizziness Cardiac rhythm disturbance Obesity Anemia Family History Medical History Relation Name Comments Cancer Father Rohan Hypertension Father Rohan Family history of hypertension - (Added by TW Conv) Kidney disease Father Rohan Stroke Father Rohan Family history of cerebrovascular accident (CVA) - (Added by TW Conv) Cancer Father's Sister 1 Lisa Cancer Father's Sister 2 Juanita Early Father's Sister 3 Latha Cancer Mother Parul Family history of malignant neoplasm - (Added by TW Conv) Cancer Mother's Brother 1 Ray Cancer Mother's Brother 2 Bhargav Cancer Other Family history of malignant neoplasm - Relation: Grandparent (Added by TW Conv) Heart disease Paternal Grandmother Shama Hypertension Sister 1 Obesity Sister 1 Anxiety disorder Sister 2 Hypertension Sister 2 Obesity Sister 2 Relation Name Status Comments Father Rohan (Age 53) Father's Sister 1 Lisa Father's Sister 2 Juanita Father's Sister 3 Latha Mother Parul (Age 43) Mother's Brother 1 Ray Mother's Brother 2 Bhargav Other Paternal Grandmother Shama Sister 1 Alive Sister 2 Alive Social History Tobacco Use Types Packs/Day Years Used Date Smoking Tobacco: Former Cigarettes Q uit: 1998 Smokeless Tobacco: Never Tobacco Cessation:Counseling Given: Not Answered Alcohol Use Standard Drinks/Week Comments Not Currently 0 (1 standard drink = 0.6 oz pur e alcohol) Rarely have a drink Personal Safety Answer Date Recorded Getting School Help Needed Not on file 09/14 Comments Unknown Sex and Gender Information Value Date Recorded Sex Assigned at Not on file Legal Sex Female 3:50 AM CAR PORTER Gender Identity Female 08/19/2020 7:33 PM CAR PORTER Sexual Orientation Straight 08/19/2020 7: 33 PM CAR PORTER Obstetrics History Last Filed Vital Signs Vital Sign Reading Time Taken Comments Blood Pressure 112/74 12/04/2023 8:22 AM CDT Pulse 88 12/04/2023 8:22 AM CDT Temperature 36.2 ??C (97.1 ??F) 08/25/2020 1 0:12 AM CAR PORTER Respiratory Rate - - Oxygen Saturation 97% 12/04/2023 8:22 AM CDT Inhaled Oxygen Concentration - - Weight 113.3 kg (249 lb 12.8 oz) 12/04/2023 8:22 AM CDT Height 162.6 cm (5' 4 ) 12/04/2023 8:22 AM CDT Body Mass Index 42.88 12/04/2023 8:22 AM CDT Plan of Treatment Health Maintenance Due Date Last Done Comments Breast Cancer Screening-Mammogram 1969 Cervical Cancer Screening 1969 Colon Cancer Screening-Colonoscopy 1969 Depression Screening 1969 Hepatitis C Screening 1969 Hepatitis B Screening 1987 Regular Well Visit/Exam 18-64 1987 Zoster Vaccine (1 of 2) 2019 Influenza Vaccine (#1) 2024 0, 04/16/2019, 05/16/2018, Additional history exists DTaP/Tdap/Td Vaccine (2 - Td or Tdap) 08/17/2028 08/17/2018 Pneumococcal vaccine <65 Aged Out No longer eligible based on patient's age to complete this topic Insurance [facility] Care Teams Cook Helper Relationship Specialty Start Date End Date Spencer Manuel MD [address] [place] [address] [place] [address] PCP - General 06/07/11
== END 2024-07-24 09:35 | disposition home or self-care (01) ==
PROVIDERS: PCP Family Medicine; Visit Provider Neurological Surgery
DX: M50.323 Other cervical disc degeneration at C6-C7 level (principal); Z98.1 Arthrodesis status
CPT/HCPCS: 72040

== ENCOUNTER 2024-08-21 14:04 | Outpatient (CLI) | payer BC, SELFPAY ==
--- OUTSIDE RECORDS SUMMARY | 2024-08-21 14:07 | XMS_ITS | Referral Summary ---
Author Organization [facility] [address] [address] Address [address] [place] [address] Care Team Providers Care Chief Information Security Officer Name Role Phone Spencer Manuel MD Primary [...] on file Legal Sex Female 3:50 AM READING INSTRUCTOR Gender Identity Female 08/19/2020 7:33 PM READING INSTRUCTOR Sexual Orientation Straight 08/19/2020 7: 33 PM READING INSTRUCTOR Last Filed Vital Signs Vital Sign Reading Time Taken Comments Blood Pressure 112/74 12/04/2023 8:22 AM CDT Pulse 88 12/04/2023 8:22 AM CDT Temperature 36.2 C (97.1 F) 08/25/2020 10:12 AM READING INSTRUCTOR Respiratory Rate - - Oxygen Saturation 97% 12/04/2023 8:22 AM CDT Inhaled Oxygen Concentration - - Weight 113.3 kg (249 lb 12.8 oz) 12/04/2023 8:22 AM CDT Height 162.6 cm (5' 4 ) 12/04/2023 8:22 AM CDT Body Mass Index 42.88 12/04/2023 8:22 AM CDT Plan of Treatment Not on file Insurance [employer] [place] [employer] [place] Care Teams Chief Information Security Officer Relationship Specialty Start Date End Date Spencer Manuel MD [address] [place] [address] PCP - General 06/07/11
--- OUTSIDE RECORDS SUMMARY | 2024-08-21 14:07 | XMS_ITS | Encounter Summary ---
Author Organization [facility] Address 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 Pediatric (12 years and under): 1.5 - 3.0 Although [...] MD HEMATOLOGY ORDERABLES Edited Performing Organization Address City/[facility] Phone Number INTERFACE SYSTEM Refer to clinic/hospital department * (ABNORMAL) HEMOGLOBIN AND HEMATOCRIT (04/25/2007 5:00 AM CDT) HEMOGLOBIN 8.6(L) 13.6 - 16.5 g/dL INTERFACE SYSTEM HEMATOCRIT 26.3(L) 40.0 - 48.0 % INTERFACE SYSTEM 04/25/2007 5:00 AM CDT Deshawn Wood MD HEMATOLOGY ORDERABLES Edited Performing Organization Address [facility] Phone Number INTERFACE SYSTEM Refer to clinic/hospital [...] patients with mechanical heart valves or post RI. Pediatric (12 years and under): 1.5 - 3.0 Although [...] MD HEMATOLOGY ORDERABLES Edited Performing Organization Address [facility] Phone Number INTERFACE SYSTEM Refer to clinic/hospital department * (ABNORMAL) HEMOGLOBIN AND HEMATOCRIT (04/24/2007 5:00 AM CDT) HEMOGLOBIN 8.8(L) 13.6 - 16.5 g/dL INTERFACE SYSTEM HEMATOCRIT 26.6(L) 40.0 - 48.0 % INTERFACE SYSTEM 04/24/2007 5:00 AM CDT us Deshawn Wood MD HEMATOLOGY ORDERABLES Edited Performing Organization Address [facility] Phone Number INTERFACE SYSTEM Refer to clinic/hospital department * (ABNORMAL) HEMOGLOBIN AND HEMATOCRIT (04/23/2007 5:21 PM CDT) HEMOGLOBIN 10.2(L) 13.6 - 16.5 g/dL INTERFACE SYSTEM HEMATOCRIT 31.0(L) 40.0 - 48.0 % INTERFACE SYSTEM 04/23/2007 5:21 PM CDT us Deshawn Wood MD HEMATOLOGY ORDERABLES Edited Performing Organization Address [facility] Phone Number INTERFACE SYSTEM Refer to clinic/hospital department * (ABNORMAL) HEMOGLOBIN AND HEMATOCRIT (04/23/2007 12:20 PM CDT) HEMOGLOBIN 10.9(L) 13.6 - 16.5 g/dL INTERFACE SYSTEM HEMATOCRIT 32.2(L) 40.0 - 48.0 % INTERFACE SYSTEM 04/23/2007 12:2 0 PM CDT us Deshawn Wood MD HEMATOLOGY ORDERABLES Edited Performing Organization Address [facility] Phone Number INTERFACE SYSTEM Refer to clinic/hospital department * POC , URINE (04/23/2007 5:50 AM CDT) , URINE POC Negative Negative INTERFACE SYSTEM 04/23/2007 5:50 AM CDT Result Marla Wood MD POINT OF CARE TESTING Edited Performing Organization Address [facility] Phone [facility] INTERFACE SYSTEM Refer to clinic/hospital department * (ABNORMAL) HEMOGLOBIN AND HEMATOCRIT (04/16/2007 4:23 PM CDT) HEMOGLOBIN 12.3(L) 13.6 - 16.5 g/dL INTERFACE SYSTEM HEMATOCRIT 36.4(L) 40.0 - 48.0 % INTERFACE SYSTEM 04/16/2007 4:23 PM CDT Result Marla Wood MD HEMATOLOGY ORDERABLES Edited Performing Organization Address [facility] Phone [facility] INTERFACE SYSTEM Refer to clinic/hospital department documented in this encounter Visit Diagnoses Diagnosis Other mechanical complication of other internal orthopedic device, implant, and graft- Primary documented in this encounter
--- OUTSIDE RECORDS SUMMARY | 2024-08-21 14:07 | XMS_ITS | Clinical Summary ---
Author Organization [facility] [address] [address] Address [address] [place] [address] Care Team Providers Care News Reel Cameraman Name Role Phone Spencer Manuel MD Primary [...] on file Legal Sex Female 3:50 AM SECURE SOFTWARE ASSESSOR Gender Identity Female 08/19/2020 7:33 PM SECURE SOFTWARE ASSESSOR Sexual Orientation Straight 08/19/2020 7: 33 PM SECURE SOFTWARE ASSESSOR Obstetrics History Last Filed Vital Signs Vital Sign Reading Time Taken Comments Blood Pressure 112/74 12/04/2023 8:22 AM CDT Pulse 88 12/04/2023 8:22 AM CDT Temperature 36.2 C (97.1 F) 08/25/2020 10:12 AM SECURE SOFTWARE ASSESSOR Respiratory Rate - - Oxygen Saturation 97% [...] patient's age to complete this topic Insurance [facility] Care Teams News Reel Cameraman Relationship Specialty Start Date End Date Spencer Manuel MD [address] [place] [id number] PCP - General 06/07/11
--- OUTSIDE RECORDS SUMMARY | 2024-08-21 14:07 | XMS_ITS | Clinical Summary ---
Author Organization [facility] Address [address] [place]: Epic Prelude ADT PATRIA GARZA [address] Care Team Providers Care Sole Rounding Machine Operator Name Role Phone Unavailable Primary Care Provider Unavailabl e Medications cephALEXin (KEFLEX) 500 mg capsule TAKE 4 TABLETS 1 HOUR PRIOR TO DENTAL WORK. 12 Capsule 4 11/10/2015 Active Social History Tobacco Use Types Packs/Day Years Used Date Smoking Tobacco: Never Assessed Sex and Gender Information Value Date Recorded Sex Assigned at Not on file Legal Sex Male 5:06 AM PLASTIC BUBBLE PACKER Gender Identity Not on file Sexual Orientation [...]
[2024-08-23 03:28] LABS: FSH 72.3 mIU/mL
== END 2024-08-21 14:05 | disposition home or self-care (01) ==
LOC: ANHLAB 14:05
PROVIDERS: PCP Family Medicine; Visit Provider Obstetrics & Gynecology
DX: N95.1 Menopausal and female climacteric states (principal)
CPT/HCPCS: 36415; 82672; 83001; 84402; 84403

== ENCOUNTER 2025-02-14 07:44 | Outpatient (CLI) | payer BC, SELFPAY ==
--- NOTE | ~2025-02-14 | MM_ITS ---
EXAMINATION: MM screening mary BI w shaye HISTORY: Screening TECHNIQUE: Craniocaudal and mediolateral oblique 3-D tomosynthesis images were obtained and synthetic 2-D images were generated. CAD analysis was submitted and interpreted. COMPARISON: Comparison to multiple prior studies sequentially, with oldest reviewed study dated 08/16. BREAST PARENCHYMAL COMPOSITION: Not Dense: The breasts are almost entirely fatty. FINDINGS: There is no evidence of suspicious mass, calcification, or architectural distortion to sugg est malignancy in either breast. There has been no suspicious interval change. IMPRESSION: 1. No mammographic evidence of malignancy. 2. Recommend routine screening mammography in one year. BI-RADS Category 1: Negative Reviewed, dictated and finalized at location A.
--- OUTSIDE RECORDS SUMMARY | 2025-02-14 07:50 | XMS_ITS | Clinical Summary ---
Author Organization [facility] [address] [place] [address] Address [address] [facility] [address] [place] [address] Care Team Providers Care Wound Specialist Name Role Phone Spencer Manuel MD Primary [...] (5,000 Units total) by mouth daily Active Zepbound 7.5 mg/0.5 mL pen injector 11/26/2024 Active Active Problems Problem Noted Date Diagnosed Date Nonrheumatic aortic valve insufficiency 12/04/19 24 Dizziness 11/21/2022 Palpitations 08/20/2020 Hyperlipidemia Hypertension BMI 40.0-44.9, adult Encounters Date Type Department Care Team Description 12/09/2024 9:00 AM CDT Office Visit [facility] Cardiology [address] [place] [phone] Awa Gaxiola MD Nonrheumatic aortic valve insufficiency (Primary Dx); Primary hypertension; Mixed hyperlipidemia; Palpitations; Dizziness 12/03/2024 9:15 AM CDT Ancillary Procedure [facility] Cardiology [address] [place] [address] Mild aortic stenosis by prior echocardiogram from Last 3 Months Surgical History Surgery Date Site/Laterality Comments CA TONSILLECTOMY PRIMARY/SECONDARY <AGE 11 Tonsillectomy - (Added by TW Conv) CA LIG/TRNSXJ FLP TUBE ABDL/VAG APPR UNI/BI Tubal Ligation - (Added by TW Conv) CA LAPAROSCOPY SURG CHOLECYSTECTOMY Cholecystectomy Laparoscopic - (Added [...] 2 Hypertension Sister 2 Obesity Sister 2 Obesity Sister 3 Latisha Relation Name Status Comments Father Rohan (Age 53) Father's Sister 1 Lisa Father's Sister 2 Juanita Father's Sister 3 Latha Mother Parul (Age 43) Mother's Brother 1 Ray Mother's Brother 2 Bhargav Other Paternal Grandmother Shama Sister 1 Alive Sister 2 Alive Sister 3 Latisha Alive Social History Tobacco Use Types Packs/Day Years Used Date Smoking Tobacco: Former Cigarettes Q uit: 1997 Smokeless Tobacco: Never Tobacco Cessation:Counseling Given: Not Answered Alcohol Use Standard Drinks/Week Comments Not Currently 0 (1 standard drink = 0.6 oz pur e alcohol) Rarely have a drink Comments Unknown Sex and Gender Information Value Date Recorded Sex Assigned at Not on file Legal Sex Female 3:50 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 Gender Identity Female 08/19/2020 7:33 PM REGISTRATION REPRESENTATIVE Sexual Orientation Straight 08/19/2020 7: 33 PM REGISTRATION REPRESENTATIVE Obstetrics History Last Filed Vital Signs Vital Sign Reading Time Taken Comments Blood Pressure 100/60 12/09/2024 9:01 AM CDT Pulse 71 12/09/2024 9:01 AM CDT Temperature 36.2 C (97.1 F) 08/25/2020 10:12 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 Respiratory Rate - - Oxygen Saturation 95% 12/09/2024 9:01 AM CDT Inhaled Oxygen Concentration - - Weight 104.8 kg (231 lb) 12/09/2024 9:01 AM CDT Height 162.6 cm (5' 4) 12/09/2024 9:01 AM CDT Body Mass Index 39.65 12/09/2024 9:01 AM CDT Plan of Treatment Health Maintenance Due Date Last Done Comments Breast Cancer Screening-Mammogram 1970 Cervical Cancer Screening 1969 Colon Cancer Screening-Colonoscopy 1969 Depression Screening 1969 Hepatitis C Screening 1969 Hepatitis B Screening 1987 Regular Well Visit/Exam 18-64 1987 Zoster Vaccine (1 of 2) 2019 Influenza Vaccine (#1) 2025 0, 04/16/2019, 05/16/2018, Additional history exists DTaP/Tdap/Td Vaccine (2 - Td or Tdap) 08/17/2028 08/17/2018 Pneumococcal vaccine <65 Aged Out No longer eligible based on patient's age to complete this topic Procedures Procedure Name Priority Date/Time Associated Diagnosis Comments POCT LIPID PANEL Routine 12/09/2024 9:03 AM CDT Mixed hyperlipidemia TRANSTHORACIC ECHO (TTE) COMPLETE W DOPPLER/CF Routine 12/03/2024 10:47 AM CDT Mild aortic stenosis by prior echocardiogram from Last 3 Months Results * POCT lipid panel (12/09/2024 9:03 AM CDT) Cholesterol, POC 138 <200 MG/DL HDL, POC 52 >=40 mg/dL Triglycerides, POC 105 <=149 mg/dL LDL Cholesterol POC 65 <=129 mg/dL Chol/HDL Ratio, POC 1.3 NONE Non-HDL Cholesterol, POC 86 NONE mg/dL Cholesterol Total, POC 138 30 - 199 mg/dL Capillary blood 12/09/2024 9 :03 AM CDT Awa Gaxiola MD POINT OF CARE TEST O RDERANEEL Final Result * TRANSTHORACIC ECHO (TTE) COMPLETE W DOPPLER/CF W CONTRAST (12/03/2024 10:47 AM CDT) Estimated EF 65-70 % CONS SCIMAGE EF Mod BP 70 % CONS SCIMAGE Anatomical Region Laterality Modality Ultrasound 12/03/2024 9:10 AM CDT Narrative 12/03/2024 1:00 PM CDT [facility] Cardiology [address] [facility] [address] [address] [address] [facility] [address], [place] [address] P:[phone] P:[phone] Echocardiographic Report Patient Name: MAIA LANDON : 1970 Study Date: 12/03/2024 9:10:06 AM Gender: F Tech: ROSIBEL Location: CT Ref Provider: AWA GAXIOLA Height(Cm): 163 BSA: 2.26 Weight(Kg): 112.9 Heart Rate: 65 BP: 160 / 89 Quality: Good Order Provider: AWA GAXIOLA PROCEDURES: Echocardiographic Report: Transthoracic echocardiogram with complete 2D, M-Mode, color Doppler examination and Definity contrast. With Strain Analysis. INDICATIONS: I35.0 Nonrheumatic aortic (valve) stenosis. MEASUREMENTS: 2D/MM Value Range Doppler Value Range EF Mod BP 70 % [ 54 - 74 ] BÁRBARA Vmax 2.10 cm2 [ 2.00 - 4.00 ] Estimated EF 65-70 % AV Mean PG 9 mmHg LVIDd 2D 4.52 cm [ 3.80 - 5.20 ] AV Peak Cameron 2.11 m/s [ 1.00 - 1.70 ] LVIDs 2D 2.59 cm [ 2.20 - 3.50 ] AV Peak PG 18 mmHg LVPWd 2D 1.01 cm [ 0.60 - 0.90 ] AV VTI 42.79 cm IVSd 2D 0.96 cm [ 0.60 - 0.90 ] LVOT Diam 2.04 cm [ 1.70 - 2.10 ] LA Volume Index 17 cc/m2 [ 16 - 34 ] LVOT Peak Cameron 1.36 m/s [ 0.70 - 1.10 ] LVOT VTI 29.53 cm PV Peak Cameron 1.41 m/s [ 0.40 - 0.80 ] TR Peak Cameron 2.42 m/s [ 1.00 - 2.80 ] TR Peak PG 24 mmHg 2D/MM Value Range Doppler Value Range - FINDINGS: Interpretation Site: Exam was interpreted at [facility]. Left Ventricle: Normal left ventricular systolic function. No focal wall motion abnormalities. Normal left ventricular size. Definity contrast agent used to visually enhance endocardial wall motion and contractility. Lot Number: [id number]. Mild concentric left ventricular hypertrophy. Impaired diastolic relaxation Grade I. Ejection fraction is measured at 70 %. Ejection Fraction is visually estimated to be 65-70 %. Global Longitudinal Strain is -17 %. GLS is borderline. Right Ventricle: Normal right ventricular size. Normal right ventricular systolic function. Left Atrium: There is mild enlargement of left atrium. Right Atrium: The right atrium is normal in size. Atrial Septum: Normal atrial septum. Mitral Valve: Normal appearance of the mitral valve. Mild mitral valve regurgitation. There is no hemodynamically significant mitral stenosis by Doppler. Aortic Valve: No evidence of hemodynamically significant aortic stenosis by Doppler. Peak Velocity of 2.10 m/s. Mean gradient of 9.0 mmHg. Valve area of 2.1 cm2. Aortic cusps appear mildly sclerotic. Trileaflet aortic valve. Moderate aortic valve regurgitation. Tricuspid Valve: Normal appearance of the tricuspid valve. Normal right ventricular systolic pressure. Estimated peak RVSP is 25-30 mmHg. Mild tricuspid regurgitation. Pulmonic Valve: Normal appearance of the pulmonic valve. No pulmonic stenosis. Trivial regurgitation in the pulmonic valve. Pericardium: Normal pericardium with no significant pericardial effusion. Aorta: No aortic root dilation. Mild aortic root calcification. IVC: Normal size and normal respiratory collapse consistent with normal right atrial pressure (<5 mmHg). CONCLUSIONS: Normal left ventricular systolic function. No focal wall motion abnormalities. Normal left ventricular size. Definity contrast agent used to visually enhance endocardial wall motion and contractility. Lot Number: [id number]. Mild concentric left ventricular hypertrophy. Impaired diastolic relaxation Grade I. Ejection fraction is measured at 70 %. Ejection Fraction is visually estimated to be 65-70 %. Global Longitudinal Strain is -17 %. GLS is borderline. There is mild enlargement of left atrium. Mild mitral valve regurgitation. No evidence of hemodynamically significant aortic stenosis by Doppler. Peak Velocity of 2.10 m/s. Mean gradient of 9.0 mmHg. Valve area of 2.1 cm2. Aortic cusps appear mildly sclerotic. Trileaflet aortic valve. Moderate aortic valve regurgitation. Mild tricuspid regurgitation. Normal sinus rhythm. Electronically Signed By: Breezy Bhatti MD 12/03/2024 12:59:59 PM CDT Procedure Note Breezy Bhatti MD - 12/03/2024 [facility] Cardiology [address] [facility] [address], [place] [address] [address] [facility] [address], [place] [address] P:[phone] P:[phone] Echocardiographic Report Patient Name: MAIA LANDON : 1970 Study Date: 12/03/2024 9:10:06 AM Gender: F Tech: ROSIBEL Location: [facility] Provider: AWA GAXIOLA Height(Cm): 163 BSA: 2.26 Weight(Kg): 112.9 Heart Rate: 65 BP: 160 / 89 Quality: Good Order Provider: AWA GAXIOLA PROCEDURES: Echocardiographic Report: Transthoracic echocardiogram with complete 2D, M-Mode, color Dopplerexamination and Definity contrast. With Strain Analysis. INDICATIONS: I35.0 Nonrheumatic aortic (valve) stenosis. MEASUREMENTS: 2D/MM Value Range Doppler ValueRange EF Mod BP 70 % [ 54 - 74 ] BÁRBARA Vmax 2.10cm2 [ 2.00 - 4.00 ] Estimated EF 65-70 % AV Mean PG 9mmHg LVIDd 2D 4.52 cm [ 3.80 - 5.20 ] AV Peak Cameron 2.11m/s [ 1.00 - 1.70 ] LVIDs 2D 2.59 cm [ 2.20 - 3.50 ] AV Peak PG 18mmHg LVPWd 2D 1.01 cm [ 0.60 - 0.90 ] AV VTI 42.79cm IVSd 2D 0.96 cm [ 0.60 - 0.90 ] LVOT Diam 2.04 cm[ 1.70 - 2.10 ] LA Volume Index 17 cc/m2 [ 16 - 34 ] LVOT Peak Cameron 1.36m/s [ 0.70 - 1.10 ] LVOT VTI 29.53 cm PV Peak Cameron 1.41 m/s [ 0.40 - 0.80 ] TR Peak Cameron 2.42 m/s [ 1.00 - 2.80 ] TR Peak PG 24 mmHg 2D/MM Value Range Doppler ValueRange - FINDINGS: Interpretation Site: Exam was interpreted at [facility]. Left Ventricle: Normal left ventricular systolic function. No focal wall motionabnormalities. Normal left ventricular size. Definity contrast agent used to visually enhanceendocardial wall motion and contractility. Lot Number: [id number]. Mild concentric leftventricular hypertrophy. Impaired diastolic relaxation Grade I. Ejection fraction ismeasured at 70 %. Ejection Fraction is visually estimated to be 65-70 %. GlobalLongitudinal Strain is -17 %. GLS is borderline. Right Ventricle: Normal right ventricular size. Normal right ventricular systolicfunction. Left Atrium: There is mild enlargement of left atrium. Right Atrium: The right atrium is normal in size. Atrial Septum: Normal atrial septum. Mitral Valve: Normal appearance of the mitral valve. Mild mitral valve regurgitation.There is no hemodynamically significant mitral stenosis by Doppler. Aortic Valve: No evidence of hemodynamically significant aortic stenosis by Doppler.Peak Velocity of 2.10 m/s. Mean gradient of 9.0 mmHg. Valve area of 2.1 cm2. Aortic cuspsappear mildly sclerotic. Trileaflet aortic valve. Moderate aortic valve regurgitation. Tricuspid Valve: Normal appearance of the tricuspid valve. Normal right ventricularsystolic pressure. Estimated peak RVSP is 25-30 mmHg. Mild tricuspid regurgitation. Pulmonic Valve: Normal appearance of the pulmonic valve. No pulmonic stenosis. Trivialregurgitation in the pulmonic valve. Pericardium: Normal pericardium with no significant pericardial effusion. Aorta: No aortic root dilation. Mild aortic root calcification. IVC: Normal size and normal respiratory collapse consistent with normal rightatrial pressure (<5 mmHg). CONCLUSIONS: Normal left ventricular systolic function. No focal wall motionabnormalities. Normal left ventricular size. Definity contrast agent used to visually enhanceendocardial wall motion and contractility. Lot Number: [id number]. Mild concentric leftventricular hypertrophy. Impaired diastolic relaxation Grade I. Ejection fraction ismeasured at 70 %. Ejection Fraction is visually estimated to be 65-70 %. GlobalLongitudinal Strain is -17 %. GLS is borderline. There is mild enlargement of left atrium. Mild mitral valve regurgitation. No evidence of hemodynamically significant aortic stenosis by Doppler.Peak Velocity of 2.10 m/s. Mean gradient of 9.0 mmHg. Valve area of 2.1 cm2. Aortic cuspsappear mildly sclerotic. Trileaflet aortic valve. Moderate aortic valve regurgitation. Mild tricuspid regurgitation. Normal sinus rhythm. Electronically Signed By: Breezy Bhatti MD 12/03/2024 12:59:59 PM CDT Awa Gaxiola MD CV ECHO PROCEDURES F inal Result from Last 3 Months Insurance [address] [place] [phone] [place] [phone] Care Teams Wound Specialist Relationship Specialty Start Date End Date Spencer Manuel MD [address] [place] [id number] [facility] - General 06/07/11
--- OUTSIDE RECORDS SUMMARY | 2025-02-14 07:50 | XMS_ITS | Encounter Summary ---
Author Organization [facility] Address 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 Pediatric (12 years and under): 1.5 - [...] MD HEMATOLOGY ORDERABLES Edited Performing Organization Address [place]/[facility] [place] Phone Number INTERFACE SYSTEM Refer to clinic/hospital department * (ABNORMAL) HEMOGLOBIN AND HEMATOCRIT (04/25/2007 5:00 AM CDT) HEMOGLOBIN 8.6(L) 13.6 - 16.5 g/dL INTERFACE SYSTEM HEMATOCRIT 26.3(L) 40.0 - 48.0 % INTERFACE SYSTEM 04/25/2007 5:00 AM CDT Deshawn Wood MD HEMATOLOGY ORDERABLES Edited Performing Organization Address City/[facility] [place] Phone Number INTERFACE SYSTEM Refer to clinic/hospital [...] patients with mechanical heart valves or post IA. Pediatric (12 years and under): 1.5 - [...] MD HEMATOLOGY ORDERABLES Edited Performing Organization Address [facility] Phone Number INTERFACE SYSTEM Refer to clinic/hospital department * (ABNORMAL) HEMOGLOBIN AND HEMATOCRIT (04/24/2007 5:00 AM CDT) HEMOGLOBIN 8.8(L) 13.6 - 16.5 g/dL INTERFACE SYSTEM HEMATOCRIT 26.6(L) 40.0 - 48.0 % INTERFACE SYSTEM 04/24/2007 5:00 AM CDT us Deshawn Wood MD HEMATOLOGY ORDERABLES Edited Performing Organization Address [facility] Phone Number INTERFACE SYSTEM Refer to clinic/hospital department * (ABNORMAL) HEMOGLOBIN AND HEMATOCRIT (04/23/2007 5:21 PM CDT) HEMOGLOBIN 10.2(L) 13.6 - 16.5 g/dL INTERFACE SYSTEM HEMATOCRIT 31.0(L) 40.0 - 48.0 % INTERFACE SYSTEM 04/23/2007 5:21 PM CDT us Deshawn Wood MD HEMATOLOGY ORDERABLES Edited Performing Organization Address [facility] Phone Number INTERFACE SYSTEM Refer to clinic/hospital department * (ABNORMAL) HEMOGLOBIN AND HEMATOCRIT (04/23/2007 12:20 PM CDT) HEMOGLOBIN 10.9(L) 13.6 - 16.5 g/dL INTERFACE SYSTEM HEMATOCRIT 32.2(L) 40.0 - 48.0 % INTERFACE SYSTEM 04/23/2007 12:2 0 PM CDT Result Marla Wood MD HEMATOLOGY ORDERABLES Edited Performing Organization Address [facility] Phone Number INTERFACE SYSTEM Refer to clinic/hospital department * POC , URINE (04/23/2007 5:50 AM CDT) , URINE POC Negative Negative INTERFACE SYSTEM 04/23/2007 5:50 AM CDT Result Marla Wood MD POINT OF CARE TESTING Edited Performing Organization Address [facility] Phone Number INTERFACE SYSTEM Refer to clinic/hospital department * (ABNORMAL) HEMOGLOBIN AND HEMATOCRIT (04/16/2007 4:23 PM CDT) HEMOGLOBIN 12.3(L) 13.6 - 16.5 g/dL INTERFACE SYSTEM HEMATOCRIT 36.4(L) 40.0 - 48.0 % INTERFACE SYSTEM 04/16/2007 4:23 PM CDT Result Marla Wood MD HEMATOLOGY ORDERABLES Edited Performing Organization Address [facility] Phone Number INTERFACE SYSTEM Refer to clinic/hospital department documented in this encounter Visit Diagnoses Diagnosis Other mechanical complication of other internal orthopedic device, implant, and graft- Primary documented in this encounter
--- OUTSIDE RECORDS SUMMARY | 2025-02-14 07:50 | XMS_ITS | Clinical Summary ---
Author Organization [facility] Address [address] 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
== END 2025-02-14 07:45 | disposition home or self-care (01) ==
LOC: ANHIMG 07:47
PROVIDERS: PCP Family Medicine; Visit Provider Obstetrics & Gynecology
DX: Z12.31 Encounter for screening mammogram for malignant neoplasm of breast (principal)
CPT/HCPCS: 77063; 77067